=== PATIENT | female | born 1945 | race Caucasian/White ===

== ENCOUNTER 2024-07-21 18:53 | Inpatient (IN) | payer MEDICARE, BC, SELFPAY ==
--- NOTE | 2024-07-21 18:56 | EKG_ITS ---
[facility] Test Date: 2024-07-21 Pat Name: TAYLOR JAMESON Department: Room: - Gender: Female Chief Service Observer: : 1945 Requested By: Tony Bettencourt Order Number: [id number] Reading MD: Tony Bettencourt Measurements Intervals [place] Rate: 77 P: 74 IA: 200 QRS: 80 QRSD: 96 T: 70 QT: 385 QTc: 436 Interpretive Statements SINUS RHYTHM WITH SINUS ARRHYTHMIA POSSIBLE RIGHT VENTRICULAR CONDUCTION DELAY [RSR (QR) IN V1/V2] No previous ECG available for comparison /store/S0/[id number].pdf
--- NOTE | 2024-07-21 18:56 | XR_ITS ---
Examination: CT cervical spine without contrast 2-D sagittal reconstructions 2-D coronal reconstructions 3-D reconstructions. Exam date and time:July 21, 2024 at 1941 hrs. Indications: Patient fell today with into the neck, neck pain CTDI:vol (mGy) 7.84 DLP: (mGycm) 172 Technique: Multiple 2 mm axial sections of the cervical spine have been obtained. The coronal and sagittal reconstructions have been obtained. 3-D reconstructions have been obtained. Low dose protocols were performed. One or more of the following dose reduction techniques were used; automated exposure control, adjustment of the mA and/or KV according to patient size, use of iterative reconstruction technique. Findings: Axial sections demonstrate intact base of the skull. C1 exhibit satisfactory relationship to the odontoid. No acute cervical vertebral body fracture seen. Alignment posterior spinous processes satisfactory. Biapical scarring Impression: No acute cervical fracture.
--- NOTE | 2024-07-21 18:56 | XR_ITS ---
Examination: CT brain head without contrast. 2-D sagittal coronal reconstructions Date and time of exam:July 21, 2024 1941 hrs. Indications: Patient fell today with injury to the head, headache CTDI: vol (mGy):58.9 DLP: (mGycm):1166 Technique: Multiple CT axial sections of the brain have been obtained, 5 mm slice thickness. Contrast has not been administered. 2-D sagittal, coronal reconstructions have been obtained Low dose protocols were performed. One or more of the following dose reduction techniques were used; automated exposure control, adjustment of the mA and/or KV according to patient size, use of iterative reconstruction technique. Findings: No significant ventricular enlargement. Intra-axial or extra-axial hemorrhage density is not seen. No mass effect or midline shift Basal cisterns are not remarkable. Fourth ventricle is midline. Cranial vault intact. Impression: Negative for acute hemorrhage, mass effect or midline shift
--- NOTE | 2024-07-21 18:56 | XR_ITS ---
Examination:Right hip AP, lateral, AP pelvis 3 views Technique: Hip AP lateral, AP pelvis, 3 views Exam date and time:1024 1956 hrs. Indications: Patient fell today with injury to the hip, hip pain Findings: Acute comminuted angulated fracture, intertrochanteric, right hip, 2 cm offset of the main fracture fragments Left hip bones of the pelvis intact Impression: Acute comminuted intertrochanteric fracture right hip.
--- NOTE | 2024-07-21 18:56 | XR_ITS ---
Examination: AP chest single view Technique one AP portable supine chest single view Exam date and time: July 21, 20242001 hrs. Comparison July 18, 2016 Indications: Ground-level fall today with injury to the chest, chest pain. Findings: Normal heart size Mild hyperexpansion Moderate pulmonary vascular congestion No pneumothorax Prominent osteopenia Clavicles ribs appear intact Impression: No pneumothorax, pulmonary contusion or hemothorax
--- NOTE | 2024-07-21 18:57 | EDNOTE_ITS ---
ED General RME/HPI General Chief complaint: Fall Stated complaint: FALL Time Seen by Provider: 07/21/24 18:55 Arrival date/time: 07/21/24 18:53 CC: Right hip pain HPI patient fell approximately 30 minutes ago stepping backwards caught her heel on something and fell patient immediately experienced pain in the right hip denies LOC or LOC states she takes a baby aspirin a day. Only medication at home simvastatin other than [id number] vitamins. Patient is awake alert oriented nontoxic-appearing no focal deficits. Related Data Allergies Allergy/AdvReac Type Severity Reaction Status Date / Time No Known Allergies Allergy Verified 07/21/24 20:31 Review of Systems Review of Systems Narrative Review of Systems: GEN: No fever, no chills, no weight loss EYES: No discharge, no visual changes, no pain HEENT: No ear pain, no congestion, no sore throat PULM: No shortness of breath, no cough, no congestion CV: No chest pain, no dyspnea on exertion, no palpitations GI: No nausea, no vomiting, no diarrhea, no pain, no constipation : No frequency, no urgency, no dysuria MUSC/SKEL: + joint pain, no back pain SKIN: No rash PSYCH: No hallucinations, no depression HEME/LYMPH: No easy bleeding or bruising tendencies NEURO: No weakness, no headache ED Exam Narrative Physical exam: [General: In moderate discomfort but not in any acute distress Head normocephalic, no step-off hematoma induration ulceration depression HEENT: Eyes pupils are PERRLA EOMs are intact mouth pink dry Momi on exam uvula is midline swallow symmetrical all other subsystems of HEENT within acceptable limits Neck is supple nontender no JVD nontender to palpation. Including cervical spinous process Chest equal chest rise nontender to palpation Respiratory: Clear to auscultation no wheezes crackles or rubs CV: Rate rhythm is regular no murmurs rubs or clicks Abdomen is soft nontender no masses positive bowel sounds all 4 quadrants Back: No CVA tenderness no spinous process tenderness from cervical spine thoracic and lumbar spine Skin: Intact no petechiae rash induration ulceration or crepitus Extremities: Decreased range of motion right lower extremity secondary to extreme pain in the right hip cap refill in the foot less than 2 seconds neurosensory intact. moving all other against resistance cap refill less than 2 seconds neurosensory intact Neuro: Awake alert oriented x3 Glascow coma 15 no focal deficits] Course Course Course Narrative: 2114Dr. Coulter consulted he is currently at bedside. Family and Dr Coulter agree patient with be admitted to the hospitalist here Dr. Coulter consult. Patient's case discussed with Dr. Khan for Dr. Chand, and attending, who agrees to except the patient for admission. Quality Measures VTE prophylaxis Orders Category Date Time Status Admit to Inpatient Status Routine Admission 07/21/24 21:53 Active Patient Condition Routine Admission 07/21/24 21:53 Ordered COVID-19 Screening Questionnaire NOW Care 07/21/24 20:55 Active Consent [Obtain Written Consent For:] .NOW Care 07/21/24 21:35 Active EKG (ED ONLY) *Do not use* NOW Care 07/21/24 18:56 Completed Miscellaneous Nursing Order NOW Care 07/21/24 21:49 Active NPO after Midnight ONCE Care 07/21/24 21:35 Active Notify provider NEEDED Care 07/21/24 21:53 Active Saline [Insert IV] NOW Care 07/21/24 18:56 Active Consult to Cardiology Stat Cons 07/21/24 21:35 Ordered Consult to Orthopedic Stat Cons 07/21/24 21:26 Ordered Diet NPO after Midnight Diet 07/22/24 00:[address] cervical spine wo con Stat Exams 07/21/24 18:[address] head/brain wo con Stat Exams 07/21/24 18:[address] hip RT wo con Stat Exams 07/21/24 19:42 Completed EKG (ED Only) Stat Exams 07/21/24 18:56 Draft XR chest 1V Stat Exams 07/21/24 18:56 Completed XR hip RT w pelvis 2-3V Stat Exams 07/21/24 18:56 Completed B-Type Natriuretic Peptide Stat Lab 07/21/24 07:13 Completed CBC Stat Lab 07/21/24 07:13 Completed Comprehensive Metabolic Panel Stat Lab 07/21/24 07:13 Completed Drug Screen,Urine Stat Lab 07/21/24 21:19 Completed LDH (Lactate Dehydrogenase) Stat Lab 07/21/24 07:13 Completed Magnesium Stat Lab 07/21/24 07:13 Completed PLATELETS [Pheresis Platelets] Stat Lab 07/21/24 21:38 Ordered Partial Thromboplastin Time Stat Lab 07/21/24 07:13 Completed Prothrombin Time with INR Stat Lab 07/21/24 07:13 Completed Urinalysis Stat Lab 07/21/24 21:19 Received Morphine Inj Med 07/21/24 20:09 Discontinued 4 mg IVP X1 ONE Ondansetron Inj [Zofran Inj] Med 07/21/24 20:09 Discontinued 4 mg IV X1 ONE Sodium Chloride 0.9% 1000 ml [Ns] 1,000 ml Med 07/21/24 20:10 Active IV 85 mls/hr fentaNYL INJ [Sublimaze Inj] Med 07/21/24 18:56 Discontinued 50 mcg IVP X1 ONE Code Status Routine Oth 07/21/24 21:53 Ordered Vital Signs Vital signs: Vital Signs Temperature 97.9 F 07/21/24 18:59 Pulse Rate 76 07/21/24 18:59 Respiratory Rate 18 07/21/24 18:59 Blood Pressure 139/84 H 07/21/24 18:59 Pulse Oximetry (%) 100 07/21/24 18:59 Oxygen Delivery Method Room Air 07/21/24 18:59 [facility] Patient data External records reviewed:: [facility] previous records and EMS form Clinical information provided by:: patient and EMS Social determinants that could affect healthcare access:: none Patient has the following chronic illnesses:: Hyperlipidemia How is presenting disease/condition affected by chronic disease/condition?: u neffected by Evaluation data The following diagnostics were reviewed and interpreted by me:: lab results, radiology exam(s) and EKG tracing(s) Lab and/or radiology exams considered but not ordered:: EKG performed at 1910 shows a ventricular rate of 77 RI interval 200 QRS of 9 6 QTc of 416 is sinus rhythm baseline wander. CT head and C-spine as interpreted by me read by radiology as negative for any acute finding requires emergent immediate intervention. CBC shows no acute leukocytosis anemia thrombocytopenia CMP shows there is elevated BUN no other electrolyte imbalances renal impairment transaminitis or T. bili elevation X-ray of the hip shows a comminuted intertrochanteric fracture. Chest x-ray as interpreted by me read by radiology as negative for any acute finding requires emergent or immediate intervention. CT of the pelvis showed the patient has had a comminuted intertrochanteric fracture. Interpretation Summary: CBC shows no acute leukocytosis anemia thrombocytopenia CMP shows no acute electrolyte imbalances renal impairment transaminitis or T. bili elevation CT of the pelvis shows a comminuted intratrochanteric fracture X-ray of the pelvis shows comminuted intertrochanteric fracture of the right femur Medications Medications considered but not ordered:: None Medication administrations:: Medication Administration History Sodium Chloride (Ns) 1,000 mls @ 85 mls/hr IV .[id number] JOEY Stop: 08/20/24 20:09 Last Admin: 07/21/24 20:43 Dose: 85 mls/hr Documented By: AM Discontinued Medications Fentanyl Citrate (Fentanyl Cit Inj 50 Mcg/Ml Amp 2ml) 50 mcg IVP X1 ONE Stop: 07/21/24 18:57 Last Admin: 07/21/24 19:16 Dose: 50 mcg Documented By: CB Morphine Sulfate (Morphine Sulf Inj 10 Mg/Ml Vial) 4 mg IVP X1 ONE Stop: 07/21/24 20:10 Last Admin: 07/21/24 20:42 Dose: 4 mg Documented By: AM Ondansetron HCl (Ondansetron Inj 2 Mg/Ml Inj 2 Ml) 4 mg IV X1 ONE; Protocol Stop: 07/21/24 20:10 Last Admin: 07/21/24 20:41 Dose: 4 mg Documented By: AM None Consultations Consultation(s) initiated? (list below): Yes Diagnosis Differential Diagnosis ED Complaint MDM: Intertrochanteric fracture femoral neck fracture acetabular fracture Most likely diagnosis given after review of the tests above:: Intertrochanteric fracture of the right femur Admission Indicated Admission indicated?: indicated Explain why admission is indicated or not indicated:: Further surgical management Admission Request Was there a request for admission?: No Disposition Plan Disposition Plan: Admit Medical Decision Making Differential Diagnosis Differential Diagnosis: Intertrochanteric fracture femoral neck fracture acetabular fracture Lab Data 07/21/24 07:13 07/21/24 07:13 Labs: Lab Results 07/21/24 07/21/24 Range/Units 07:13 21:19 WBC 5.0 (3.6-11.0) Thou/mm3 RBC 4.26 (4.00-5.20) Miln/mm3 Hgb 13.5 (12.0-16.0) g/dL Hct 39.2 (36.0-46.0) % MCV 92 (80-100) fL MCH 31.7 (25.0-35.0) pg MCHC 34.4 (31.0-37.0) g/dl RDW Std Deviation 44.0 (36.4-46.3) fL Plt Count 174 (140-440) Thou/mm3 Neut % (Auto) 52 (37-80) % Lymph % (Auto) 32 (10-50) % Woods % (Auto) 9 (0-12) % Eos % (Auto) 6 (0-10) % Baso % (Auto) 0 (0-2.5) % Neut # (Auto) 2.6 (1.8-7.7) Thou/mm3 Lymph # (Auto) 1.6 (1.0-4.8) Thou/mm3 Woods # (Auto) 0.5 (0.0-0.8) Thou/mm3 Eos # (Auto) 0.3 (0.0-0.5) Thou/mm3 Baso # (Auto) 0.0 (0.0-0.2) Thou/mm3 Immature Gran # (Auto) 0.02 H (0.00-0.00) Thou/mm3 Absolute Nucleated RBC 0.00 (0.00-0.00) Thou/mm3 Immature Gran % 0 (0-0) % Nucleated RBC % 0 (0) /100 WBC PT 11.4 (9.0-12.2) Seconds INR 1.0 (0.9-1.3) APTT 24.8 (22.0-36.0) Seconds Sodium 141 (136-145) mMol/L Potassium 4.0 (3.4-5.1) mMol/L Chloride 106 (98-107) mMol/L Carbon Dioxide 26.2 (20.0-31.0) mMol/L Anion Gap 9 (7-16) BUN 25 H (9-23) mg/dL Creatinine 1.0 (0.6-1.3) mg/dL Estim Creat Clear Calc 47.5 L (>60) mL/min eGFR 58 L (60 - ) See Note BUN/Creatinine Ratio 25 H (12-20) Ratio Glucose 176 H (74-106) mg/dL Calculated Osmolality 289 (275-295) Calcium 9.8 (8.3-10.6) mg/dL Corrected Calcium 9.8 (8.5-10.1) mg/dL Magnesium 1.9 (1.6-2.6) mg/dL Total Bilirubin 0.5 (0.3-1.2) mg/dL AST 33 (0-34) U/L ALT 29 (10-49) U/L Alkaline Phosphatase 75 (46-116) U/L Lactate Dehydrogenase 300 H (120-246) U/L B-Natriuretic Peptide 39 (0-100) pg/mL Total Protein 6.5 (5.7-8.2) gm/dL Albumin 4.4 (3.4-4.8) gm/dL Globulin 2.1 L (2.3-3.5) gm/dL Albumin/Globulin Ratio 2.1 (1.2-2.2) Urine Opiates Screen Positive A (Negative) Urine Fentanyl Screen Negative (Negative) Ur Barbiturates Screen Negative (Negative) U Amphetamin/Meth Scrn Negative (Negative) U Benzodiazepines Scrn Negative (Negative) U Cocaine Metab Screen Negative (Negative) U Marijuana (THC) Screen Negative (Negative) Discharge Plan Plan Patient Disposition: Other Care w/in Hosp ([facility]) Patient condition on transfer: Stable Prescriptions/Referrals Referrals: Adán Reed MD [Primary Care Provider] - In 1 week Problem List Clinical Impression: Closed fracture of right hip Patient/Caregiver Discharge Instructions Print Language: Korean Stand Alone Forms: Alessandra Award Info., Patient Portal Info Letter MICHAEL/CELESTINA Supervising Physician MICHAEL/CELESTINA Supervising Physician: Anjali Reed ENP
[2024-07-21 18:59] VITALS: BP 139/84; PULSE 76; RESP 18; TEMP 36.6; O2SAT 100
[2024-07-21 19:07] VITALS: PULSE 92; O2SAT 98
[2024-07-21] MEDS: fentaNYL CIT INJ 50 mCg/ML AMP 2ML IVP (19:16)
[2024-07-21 19:19] VITALS: BMI 21.7
[2024-07-21 19:21] VITALS: BP 144/93; PULSE 75; RESP 12; O2SAT 100
[2024-07-21 19:25] LABS: Basophils % (Auto) 0 % (0-2.5); Eosinophils # (Auto) 0.3 Thou/mm3 (0.0-0.5); Eosinophils % (Auto) 6 % (0-10); Hematocrit 39.2 % (36.0-46.0); Hemoglobin 13.5 g/dL (12.0-16.0); Immature Granulocytes % (Auto) 0 % (0-0); Immature Granulocytes Auto 0.02 Thou/mm3 (0.00-0.00); Lymphocytes # (Auto) 1.6 Thou/mm3 (1.0-4.8); Lymphocytes % (Auto) 32 % (10-50); Mean Corpuscular HGB Conc 34.4 g/dl (31.0-37.0); Mean Corpuscular Hemoglobin 31.7 pg (25.0-35.0); Mean Corpuscular Volume 92 fL (80-100); Monocytes # (Auto) 0.5 Thou/mm3 (0.0-0.8); Monocytes % (Auto) 9 % (0-12); Neutrophils # (Auto) 2.6 Thou/mm3 (1.8-7.7); Neutrophils % (Auto) 52 % (37-80); Nucleated Red Blood Cell % 0 /100 WBC (0); Platelet Count 174 Thou/mm3 (140-440); Red Blood Count 4.26 Miln/mm3 (4.00-5.20)
[2024-07-21 19:41] LABS: Partial Thromboplastin Time 24.8 Seconds (22.0-36.0); Prothrombin Time 11.4 Seconds (9.0-12.2)
--- NOTE | 2024-07-21 19:42 | XR_ITS ---
Examination: CT right hip, without contrast. CT pelvis without intravenous contrast 2-D sagittal reconstructions. 2-D coronal reconstructions. 3-D reconstructions. Date and time of exam:July 21, 2024 1955 hrs. Indications: Patient fell today with into the right hip, right hip pain CTDI: vol (mGy):9.51 DLP: (mGycm):282 Technique: Multiple 1.25 mm axial sections of the pelvis right hip have been obtained. 2-D sagittal and coronal reconstructions have been obtained. 3-D reconstructions have been obtained. Low dose protocols were performed. One or more of the following dose reduction techniques were used; automated exposure control, adjustment of the mA and/or KV according to patient size, use of iterative reconstruction technique. Findings: Severe osteopenia Iliac bones bones of the pelvis intact Acute angulated intertrochanteric fracture right hip No hip dislocation Left hip bones of the pelvis intact Urinary bladder intact Colonic diverticulosis Impression: Acute angulated comminuted intertrochanteric fracture right hip
[2024-07-21 19:44] LABS: B-Type Natriuretic Peptide 39 pg/mL (0-100)
[2024-07-21 19:45] LABS: Alanine Aminotransferase 29 U/L (10-49); Albumin, Serum 4.4 gm/dL (3.4-4.8); Albumin/Globulin Ratio 2.1 (1.2-2.2); Alkaline Phosphatase 75 U/L (46-116); Anion Gap 9 (7-16); Aspartate Amino Transferase 33 U/L (0-34); BUN/Creatinine Ratio 25 Ratio (12-20); Bilirubin,Total 0.5 mg/dL (0.3-1.2); Blood Urea Nitrogen 25 mg/dL (9-23); Calcium 9.8 mg/dL (8.3-10.6); Calcium (Corrected) 9.8 mg/dL (8.5-10.1); Carbon Dioxide 26.2 mMol/L (20.0-31.0); Chloride 106 mMol/L (98-107); Estimated Creatinine Clearance 47.5 mL/min (>60); Globulin 2.1 gm/dL (2.3-3.5); Glucose 176 mg/dL (74-106); LDH (Lactate Dehydrogenase) 300 U/L (120-246); Magnesium 1.9 mg/dL (1.6-2.6); Osmolality,Calculated 289 (275-295); Sodium 141 mMol/L (136-145); Total Protein 6.5 gm/dL (5.7-8.2); eGFR 58 See Note
[2024-07-21] MEDS: ONDANSETRON INJ 2 MG/ML INJ 2 ML 4 MG IV (20:41)
[2024-07-21] MEDS: MORPHINE SULF INJ 10 MG/ML VIAL 4 MG IVP (20:42)
[2024-07-21] MEDS: SODIUM CHLORIDE 0.9% 1000 ML 1,000 ML 85 ML IV (20:43)
--- NOTE | 2024-07-21 21:29 | ESCONSULT_ITS ---
HPI Consult details Reason for consultation narrative: Pain right hip History of present illness: Patient was in her kitchen and started back up caught her shoe fell backwards and injured her right hip no complaints of pain in her right knee right ankle or foot no complaints of pain in her shoulders elbows wrist hands or fingers Past Medical History Past Medical History CARDIAC: Negative Congestive Heart Failure RESPIRATORY: Negative Chronic Obstructive Pulmonary Disease (COPD) GENITOURINARY: Negative Renal Disease ENDOCRINE: Negative Diabetes Mellitus Type 1 or Diabetes Mellitus Type 2 Social History SMOKING STATUS: Never smoker Meds Home Medications and Allergies Allergies Allergy/AdvReac Type Severity Reaction Status Date / Time No Known Allergies Allergy Verified 07/21/24 20:31 Exam Vital Signs Temp Pulse Resp BP Pulse Ox O2 Del Method 97.9 F 75 12 144/93 H 100 Room Air 07/21/24 18:59 07/21/24 19:21 07/21/24 19:21 07/21/24 19:21 07/21/24 19:21 07/21/24 19:21 Blood pressure 144/93 Narrative Exam Patient is alert and oriented. She is able to lift her head off of the gurney and looks [id number] with no neck pain whatsoever. Has full range of motion of her shoulders elbows wrist hands and fingers and no pain with passive and active range of motion. No chest wall discomfort does have some mid axillary pain right chest wall not severe Abdomen soft nontender no masses no organomegaly Examination of lower extremities shows that the right lower extremity is shortened externally rotated No pain in her right knee right ankle or foot good active flexion-extension of her toes. No complaints of pain in left lower extremity Results - Ortho Labs 07/21/24 07:13 07/21/24 07:13 Labs: Short CBC 07/21/24 Range/Units 07:13 WBC 5.0 (3.6-11.0) Thou/mm3 Hgb 13.5 (12.0-16.0) g/dL Hct 39.2 (36.0-46.0) % Plt Count 174 (140-440) Thou/mm3 BMP 07/21/24 07:13 Sodium 141 Potassium 4.0 Chloride 106 Carbon Dioxide 26.2 BUN 25 H Creatinine 1.0 Glucose 176 H Calcium 9.8 Liver Function 07/21/24 Range/Units 07:13 Total Bilirubin 0.5 (0.3-1.2) mg/dL AST 33 (0-34) U/L ALT 29 (10-49) U/L Alkaline Phosphatase 75 (46-116) U/L Albumin 4.4 (3.4-4.8) gm/dL Hemoglobin 13.5, creatinine 1.0 Assessment & Plan Additional Assessment Additional comments: Right peritrochanteric subtrochanteric hip fracture Plan I contacted Dr. Caroline Guzman's going to see her in the morning were good at work on getting her done tomorrow afternoon I told him it is a justyn and a bolt. There is always a risk of surgery including infection perioperative postoperative deep vein thrombosis myocardial infarction and Hector embolus. Usually there is some abnormalities of gait after a severe right hip fracture or left hip fracture. I told her that the rehab will be intense and that most likely she will have a limp and it certainly could be on a permanent basis. 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 Adán Reed on a biannual basis. She did have a angiogram she said there was some blockage and no stent was required. She does have elevated cholesterol and takes atorvastatin and with this medication her cholesterol is 147
[2024-07-21 21:34] LABS: Collection Type, Urine Clean Catch; Squamous Epithelial Cell,Urine 0 /hpf (0-5)
[2024-07-21 21:52] LABS: Amphetamine/Methamp Scrn,U Negative (Negative); Barbiturate Screen,Urine Negative (Negative); Benzodiazepines Screen,Urine Negative (Negative); Benzoylecgonine Screen, Ur Negative (Negative); Fentanyl Screen,Urine Negative (Negative); Opiate Screen,Urine Positive (Negative); THC Screen,Urine Negative (Negative)
[2024-07-21 21:55] LABS: Bilirubin,Urine Negative (Negative); Blood,Urine Negative (Negative); Clarity,Urine Clear (Clear/Hazy); Color,Urine Drk-Yellow (Lt Yel-Yel); Glucose, Urine Negative (Negative); Ketones,Urine Negative (Negative); PH,Urine 6.5 (5.0-7.0); Protein,Urine Trace (Neg - Trace); Specific Gravity,Urine 1.026 (1.001-1.035)
[2024-07-21 21:56] LABS: Leukocyte Esterase,Urine Negative (Negative); Nitrite,Urine Negative (Negative); RBC,Urine 4 /hpf (0-3); WBC,Urine 3 /hpf (0-5)
--- NOTE | 2024-07-21 22:50 | PD.RESHP ---
Documentation for date of: 07/21/24 HPI History of Present Illness Chief complaint: Ground level fall, R hip pain History of present illness: Patient is a 79-year-old female with past medical history of hyperlipidemia who presented to the ED on 07/21/2024 with a ground level mechanical fall earlier today at home. Patient states that at approximately 6 pm she was stepping backwards when her heel caught over a corner of furniture in her home. Patient fell backwards, landed on her hip and felt immediate pain. Patient denied any prodrome of dizziness, lightheadedness, or presyncope. Denies hit to head or loss of consciousness. Patient ambulates independently without assistance and completes all ADLs. Lives at home with . She denies any chest pain, shortness of breath, nausea, vomiting, abdominal pain, change to bowel or urinary habits, fever, chills, or any other symptoms. Patient denies any significant cardiac history, states she had an angiogram before but no stents placed and is not currently seeing a java j2ee software engineer. She follows with her PCP Dr. Adán Reed. ED Course: -BP 139/84, HR 76, RR 18, Temp 97.9, O2 100% on room air -Labs showed CBC normal, CMP showed BUN 25, creatinine 1.0 (no prior baseline), creatinine clearance 47.5, GFR 58, glucose 176, LDH 300 -Cervical spine CT and head CT negative -CXR normal -EKG showed sinus rhythm at a rate of 77 -R hip and pelvis X-ray showed acute comminuted intertrochanteric fracture right hip -R hip CT showed acute angulated comminuted intertrochanteric fracture right hip -In the ED, patient was given fentanyl 50 mcg IV x1, Zofran 4 mg IV x1, morphine 4 mg IV x1, IV NS at 85 ml/hr -Patient was admitted for acute right hip fracture and Ortho was consulted by the ED for surgical management Review of Systems Review of systems otherwise negative except what is mentioned above. Past Medical History Past Medical History Comments PMH COMMENT: Past Medical History: Hyperlipidemia Surgical History: Tonsillectomy, appendectomy, total hysterectomy Social History: Denies history of smoking, occasional alcohol use about 1 glass of wine per month, denies recreational drug use Current Medications: Atorvastatin 40 mg qday (Source: Patient) Allergies: No known drug allergies Exam Vital Signs Temp Pulse Resp BP Pulse Ox O2 Del Method 97.9 F 75 12 144/93 H 100 Room Air 07/21/24 18:59 07/21/24 19:21 07/21/24 19:21 07/21/24 19:21 07/21/24 19:21 07/21/24 19:21 Narrative Exam Physical Exam General: Awake and in no acute distress. Elderly female conversational and non-toxic appearing. HEENT: Normocephalic, atraumatic, mucous membranes moist. Heart: Regular rate and rhythm, no murmurs. Lungs: Clear to auscultation with no wheezing or crackles. Abdomen: Soft, nondistended, nontender, positive bowel sounds. ?No guarding or rebound tenderness. Neurologic: Alert and oriented x3, no gross neurological deficit, and patient able to move all 4 extremities. Extremities: Right hip is edematous, no notable abrasions, hematoma, ecchymoses. Flexed and externally rotated. Able to move bilateral toes. Peripheral pulses intact. Skin: No rash or ecchymoses. Results: Labs 07/22/24 04:57 07/21/24 07:13 Labs: Short CBC 07/21/24 Range/Units 07:13 WBC 5.0 (3.6-11.0) Thou/mm3 Hgb 13.5 (12.0-16.0) g/dL Hct 39.2 (36.0-46.0) % Plt Count 174 (140-440) Thou/mm3 BMP 07/21/24 07:13 Sodium 141 Potassium 4.0 Chloride 106 Carbon Dioxide 26.2 BUN 25 H Creatinine 1.0 Glucose 176 H Calcium 9.8 Liver Function 07/21/24 Range/Units 07:13 Total Bilirubin 0.5 (0.3-1.2) mg/dL AST 33 (0-34) U/L ALT 29 (10-49) U/L Alkaline Phosphatase 75 (46-116) U/L Albumin 4.4 (3.4-4.8) gm/dL Urine 07/21/24 Range/Units 21:19 Urine Color Drk-Yellow A (Lt Yel-Yel) Urine Clarity Clear (Clear/Hazy) Urine pH 6.5 (5.0-7.0) Ur Specific [place] 1.026 (1.001-1.035) Urine Protein Trace (Neg - Trace) Urine Glucose (UA) Negative (Negative) Quality Measures Quality Measures VTE prophylaxis Advance care planning discussed with:: patient and spouse Medications Home Medications and Allergies Home Medications ?Medication ?Instructions ?Recorded ?Confirmed ?Type atorvastatin 40 mg tablet 40 mg PO DAILY 07/22/24 07/22/24 History Allergies Allergy/AdvReac Type Severity Reaction Status Date / Time No Known Allergies Allergy Verified 07/21/24 20:31 Visit Medications Sodium Chloride (Ns) 1,000 mls @ 85 mls/hr IV .[id number] JOEY Stop: 08/20/24 20:09 Last Admin: 07/21/24 20:43 Dose: 85 mls/hr Discontinued Medications Fentanyl Citrate (Fentanyl Cit Inj 50 Mcg/Ml Amp 2ml) 50 mcg IVP X1 ONE Stop: 07/21/24 18:57 Last Admin: 07/21/24 19:16 Dose: 50 mcg Morphine Sulfate (Morphine Sulf Inj 10 Mg/Ml Vial) 4 mg IVP X1 ONE Stop: 07/21/24 20:10 Last Admin: 07/21/24 20:42 Dose: 4 mg Ondansetron HCl (Ondansetron Inj 2 Mg/Ml Inj 2 Ml) 4 mg IV X1 ONE; Protocol Stop: 07/21/24 20:10 Last Admin: 07/21/24 20:41 Dose: 4 mg Assessment & Plan Plan 79-year-old female with past medical history of hyperlipidemia who presented to the ED on 07/21/2024 with a ground level mechanical fall, found to have acute comminuted intertrochanteric right hip fracture, admitted for orthopedic surgery. #Ground level mechanical fall #Acute comminuted intertrochanteric closed right hip fracture Patient had ground level mechanical fall at home, R hip and pelvis X-ray and CT showed acute comminuted intertrochanteric fracture of the right hip. Head and neck CT were negative. Patient denies any prodrome to fall, states she is normally independent. Patient without significant risk factors for surgery, METS >4. -Orthopedic surgery was consulted and saw patient in ED -Cardiology was consulted and cardiac clearance requested by ortho -NPO for surgery tomorrow -Continue IV fluids NS at 85 ml/hr -TTE ordered -A1c, lipids ordered for risk stratification -Acetaminophen as needed for fever or pain -[place] 5/325 q6h as needed for moderate to severe pain -Morphine 2 mg q4h as needed for severe pain -Zofran as needed for nausea #History of hyperlipidemia Patient history, takes atorvastatin at home. -Continue home atorvastatin 40 mg HS -Ordered AM lipid panel DVT prophylaxis: SCDs pending surgery GI prophylaxis: Not indicated Diet: NPO Kurtz: Present [07/21/2023- ] Lines: Peripheral IV Antibiotics: None CODE STATUS: FULL Reason for hospitalization: R hip fracture secondary to ground-level fall, pending surgery Patient plan of care was discussed with the attending physician, Dr. Chand. Florina Arias, PGY-2 Attending Provider Attestation/Addendum Face to face evaluation was performed by me. I have personally seen and examined the patient. I discussed the assessment and plan with the entire medicine team. I reviewed available medical records, imaging studies, laboratory results. I agree with the above subjective data, objective findings, assessment and plan except as corrected by me or noted below -Ground level mechanical fall, nonsyncopal -Right hip intertrochanteric comminuted fracture, closed -Right hip pain due to above hyperlipidemia - -Pain control, orthopedic surgery consulted, keep n.p.o. after midnight possible procedure tomorrow. She does not have cardiac history, does not look like to be high risk for possible surgery. EKG seems like done.
[2024-07-21 23:03] VITALS: BMI 23.0
[2024-07-21] MEDS: MORPHINE SULF INJ 10 MG/ML VIAL 2 MG IVP (23:58)
[2024-07-22] VITALS (16 sets, daily range): BP systolic 85–142; BP diastolic 40–78; PULSE 69–99; RESP 12–97; TEMP 36.1–37.4; O2SAT 93–100
[2024-07-22] MEDS: MORPHINE SULF INJ 10 MG/ML VIAL 2 MG IVP ×2 (03:54→08:38)
[2024-07-22 05:55] LABS: Basophils % (Auto) 0 % (0-2.5); Eosinophils # (Auto) 0.1 Thou/mm3 (0.0-0.5); Eosinophils % (Auto) 1 % (0-10); Hematocrit 29.7 % (36.0-46.0); Hemoglobin 10.2 g/dL (12.0-16.0); Immature Granulocytes % (Auto) 0 % (0-0); Immature Granulocytes Auto 0.01 Thou/mm3 (0.00-0.00); Lymphocytes # (Auto) 0.6 Thou/mm3 (1.0-4.8); Lymphocytes % (Auto) 10 % (10-50); Mean Corpuscular HGB Conc 34.3 g/dl (31.0-37.0); Mean Corpuscular Hemoglobin 32.4 pg (25.0-35.0); Mean Corpuscular Volume 94 fL (80-100); Monocytes # (Auto) 0.4 Thou/mm3 (0.0-0.8); Monocytes % (Auto) 7 % (0-12); Neutrophils # (Auto) 4.7 Thou/mm3 (1.8-7.7); Neutrophils % (Auto) 81 % (37-80); Nucleated Red Blood Cell % 0 /100 WBC (0); Platelet Count 177 Thou/mm3 (140-440); RDW Standard Deviation 45.2 fL (36.4-46.3); Red Blood Count 3.15 Miln/mm3 (4.00-5.20); White Blood Count 5.8 Thou/mm3 (3.6-11.0)
[2024-07-22 06:15] LABS: INR 1.1 (0.9-1.3); Partial Thromboplastin Time 24.8 Seconds (22.0-36.0); Prothrombin Time 11.9 Seconds (9.0-12.2)
[2024-07-22 06:32] LABS: Anion Gap 5 (7-16); BUN/Creatinine Ratio 31 Ratio (12-20); Blood Urea Nitrogen 25 mg/dL (9-23); Calcium 8.6 mg/dL (8.3-10.6); Carbon Dioxide 27.6 mMol/L (20.0-31.0); Chloride 110 mMol/L (98-107); Creatinine (Component) 0.8 mg/dL (0.6-1.3); Estimated Creatinine Clearance 59.4 mL/min (>60); Glucose 177 mg/dL (74-106); Magnesium 1.8 mg/dL (1.6-2.6); Osmolality,Calculated 293 (275-295); Phosphorous 3.5 mg/dL (2.4-5.1); Sodium 143 mMol/L (136-145); eGFR > 60 See Note
[2024-07-22 06:44] LABS: Cardiac Risk Estimate 2.4 RATIO (3.7-5.6); Cholesterol 126 mg/dL (132-200); HDL Cholesterol 52 mg/dL (40-60); LDL Cholesterol,Calculated 67 mg/dL (0-130); Triglycerides 36 mg/dL (30-150)
[2024-07-22 07:16] LABS: Glucose Estimated Average 108 mg/dL (80-131); Hemoglobin A1C 5.4 % Hgb (4.8-6.0)
--- NOTE | 2024-07-22 08:59 | ECHO_ITS ---
Transthoracic Echo Report Ht (in): 68 Wt (lb): 151 Exam Location: [facility] Status: Inpatient Product Development Director: Aicha Heath Indications: Procedure Performed: BP: 122 / 62 HR: 82 Rhythm: Sinus Technical Quality: Fair MEASUREMENTS (Male / Female) Normal Values 2D ECHO LV Diastolic Diameter PLAX 4.0 cm 4.2 - 5.9 / 3.9 - 5.3 cm LV Systolic Diameter PLAX 2.8 cm IVS Diastolic Thickness 0.8 cm 0.6 - 1.0 / 0.6 - 0.9 cm LVPW Diastolic Thickness 0.9 cm 0.6 - 1.0 / 0.6 - 0.9 cm LV Relative Wall Thickness 0.4 LVOT Diameter 1.8 cm LA Volume Index 23.6 cm?/m? 16 - 28 cm?/m? Ascending Aorta Diameter 2.7 cm M-MODE Aortic Root Diameter MM 2.6 cm LA Systolic Diameter MM 3.3 cm LA Ao Ratio MM 1.3 AV Cusp Separation MM 1.9 cm DOPPLER AV Peak Velocity 164.0 cm/s AV Peak Gradient 10.8 mmHg AV Mean Gradient 5.0 mmHg AV Velocity Time Integral 38.3 cm LVOT Peak Velocity 155.0 cm/s LVOT Peak Gradient 9.6 mmHg LVOT Velocity Time Integral 31.4 cm LVOT Cardiac Index 3608.4 cm?/min?m? AV Area Cont Eq vti 2.1 cm? AV Area Cont Eq pk 2.4 cm? MV Peak Velocity 101.0 cm/s MV Peak Gradient 4.1 mmHg MV Mean Velocity 63.5 cm/s MV Mean Gradient 2.0 mmHg MV Area PHT 4.2 cm? Mitral E Point Velocity 79.2 cm/s Mitral A Point Velocity 81.9 cm/s Mitral E to A Ratio 1.0 LV E' Lateral Velocity 13.8 cm/s Mitral E to LV E' Lateral Ratio 5.7 LV E' Septal Velocity 9.0 cm/s Mitral E to LV E' Septal Ratio 8.8 TR Peak Velocity 307.0 cm/s TR Peak Gradient 37.7 mmHg FINDINGS Left Ventricle Normal left ventricular size, wall thickness, systolic function with no obvious regional wall motion abnormalities. The ejection fraction is visually estimated at 60-65%. Right Ventricle The right ventricle is normal in size and systolic function. The estimated right ventricular systoli c pressure, 46mmHg. RAP 5. Left Atrium The left atrium is normal by two-dimensional, color flow and Doppler imaging with no structural abnormalities, no thrombus formation present. Right Atrium The right atrium is normal by two-dimensional imaging, color flow and Doppler imaging with no struct ural abnormalities, no thrombus formation present. Atrial Septum The interatrial septum appears normal with no evidence of a shunt. Aorta The aorta is normal by two-dimensional, color flow and Doppler interrogation. Mitral Valve The mitral valve is normal by two-dimensional, color flow and Doppler interrogation. There is trace mitral valve regurgitation. Aortic Valve The aortic valve is trileaflet and normal by two-dimensional, color flow and Doppler interrogation. There is no significant aortic valve regurgitation. Tricuspid Valve The tricuspid valve is normal by two-dimensional, color flow and Doppler interrogation. There is mil d tricuspid valve regurgitation. Pulmonic Valve There is no significant pulmonic valve regurgitation. Vessels The pulmonary artery appears normal. The inferior vena cava pulmonary and hepatic veins appear margret l. Pericardium The pericardium is normal by two-dimensional imaging. There is no significant pericardial effusion. CONCLUSIONS Normal LV size and function. Estimated EF 60-65% Normal RV size and function. Estimated RVSP 46mmHg. Trace MR. Mild TR. LOw c ardiac risk for surgery Nikki Ramires (Electronically Signed) Final Date: 22 July 2024 13:32
[2024-07-22] MEDS: SODIUM CHLORIDE 0.9% 1000 ML 1,000 ML 85 ML IV (09:05)
--- NOTE | 2024-07-22 09:44 | ESCONSULT_ITS ---
<Statement entered by Del Guzman MD - 07/24/24 13:06> The patient is evaluated by me and has normal LVEF 65% by ECHO low cardiac risk for surgery patient is evaluated by me personally appears to be doing clinically stable no shortness of or chest pain given cardiac clearance for surgery I agree with the treatment plan recommendation as formulated by Dr De La Torre PGY 2 HPI Data of Consult Requesting Physician: Wilfredo Chand MD Admitting Provider: Wilfredo Chand MD Attending Provider: Wilfredo Chand MD Primary Care Provider: Adán Reed MD Consult Narrative Reason for consult: cardiac clearance History of present illness: Ms. Falk is a 79-year-old female with past medical history significant for hyperlipidemia who presented to the ED after suffering a ground-level fall. Around 6 PM last night, patient was about her normal daily activities and when suddenly her foot was caught on the carpet at the edge of the dining table and she fell on her right hip against a low, small piece of furniture. Patient denied losing any consciousness, feeling dizzy, having a headache, or chest pain. Patient initially thought she dislocated her right hip however her brought her to the ED where she was evaluated. Both x-ray and right hip CT showed acute comminuted intertrochanteric fracture of the right hip. Head CT was negative for any hemorrhage or mass effect. CT cervical spine showed no fracture. Chest x-ray showed no pneumothorax or pulmonary contusion. In the ED, patient was given fentanyl and morphine pushes which helped control the pain. On examination today, patient states that she has no chest pain, shortness of breath, dizziness, lightheadedness, or cough. Patient continues to have right hip pain especially on movement. Patient's pain is currently well- controlled with pain regimen as per primary team. Of note, due to patient's strong cardiac history, patient had a stress test which showed some blockage, which prompted her previous cocktail waitress Dr. Waldrop in to get an angiogram which did note some blockage but not enough to place a stent, in 2016. 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 Adán Reed kept patient on home atorvastatin 40 mg. ROS: Negative except as mentioned above past medical history: As mentioned above Past surgical history: Tonsillectomy, appendectomy, total hysterectomy Meds: Atorvastatin 40 mg at bedtime, aspirin 81 mg daily, fish oil, vitamins Social history: Patient denies any smoking or recreational drug use. However, patient does drink 1 glass of wine occasionally. Patient was with her . Family history: Patient's father of a heart attack at age 47. Cardiology was consulted for pre-op cardiac clearance prior to orthopedic surgery later today. cc:: cc: Wilfredo Chand MD Review of Systems Review of Systems Systems Reviewed: All systems reviewed, normal except as documented Exam Vital Signs Temp Pulse Resp BP Pulse Ox O2 Del Method 97.1 F 78 18 116/57 L 97 Room Air 07/22/24 04:00 07/22/24 04:00 07/22/24 04:00 07/22/24 04:00 07/22/24 04:00 07/22/24 04:00 Narrative Exam General Appearance: Pt is awake and alert in NAD laying flat in bed. Elderly female, able to carry a conversation, well-nourished, and well-developed. HEENT: NC/AT, no scleral icterus, no conjunctival pallor, MMM Lungs: CTAB, no wheezes or crackles appreciated CVS: RRR, S1/S2 heard, no murmurs or rubs appreciated ABD: Soft, non-tender, non-distended, BS + in all 4 quadrants EXT: Right hip appears to be slightly edematous compared to left, otherwise tender to palpation, no hematoma or ecchymosis noted. Warm to touch otherwise. Distal pulses 2+ bilaterally. SKIN: Skin exam normal without any rashes. Neuro: A&O x 3. No gross neurological deficits. Motor and sensory grossly intact in B/L UL and LL except for right lower extremity due to pain, but able to move her toes bilaterally. Right lower extremity is currently flexed and externally rotated. Psych: Appropriate mood and affect Results Labs 07/22/24 09:04 07/22/24 04:57 Labs: Short CBC 07/21/24 07/22/24 Range/Units 07:13 04:57 WBC 5.0 5.8 (3.6-11.0) Thou/mm3 Hgb 13.5 10.2 L D (12.0-16.0) g/dL Hct 39.2 29.7 L (36.0-46.0) % Plt Count 174 177 (140-440) Thou/mm3 BMP 07/21/24 07/22/24 07:13 04:57 Sodium 141 143 Potassium 4.0 4.0 Chloride 106 110 H Carbon Dioxide 26.2 27.6 BUN 25 H 25 H Creatinine 1.0 0.8 Glucose 176 H 177 H Calcium 9.8 8.6 Liver Function 07/21/24 Range/Units 07:13 Total Bilirubin 0.5 (0.3-1.2) mg/dL AST 33 (0-34) U/L ALT 29 (10-49) U/L Alkaline Phosphatase 75 (46-116) U/L Albumin 4.4 (3.4-4.8) gm/dL Urine 07/21/24 Range/Units 21:19 Urine Color Drk-Yellow A (Lt Yel-Yel) Urine Clarity Clear (Clear/Hazy) Urine pH 6.5 (5.0-7.0) Ur Specific [place] 1.026 (1.001-1.035) Urine Protein Trace (Neg - Trace) Urine Glucose (UA) Negative (Negative) Quality Measures Quality Measures VTE prophylaxis Advance care planning discussed with:: patient Medications Home Medications and Allergies Home Medications ?Medication ?Instructions ?Recorded ?Confirmed ?Type atorvastatin 40 mg tablet 40 mg PO DAILY 07/22/24 07/22/24 History Allergies Allergy/AdvReac Type Severity Reaction Status Date / Time No Known Allergies Allergy Verified 07/21/24 20:31 Visit Medications Acetaminophen (Acetaminophen 325 Mg Tablet) 650 mg PO Q6H PRN PRN Reason: Fever >100.4 or Pain 1-10 Stop: 08/20/24 22:59 Hydrocodone Bitart/Acetaminophen (Hydrocodone/Apap 5/325 Tablet) 1 tab PO Q6H PRN PRN Reason: PAIN SCALE 4-6 (Moderate Stop: 07/26/24 22:59 Atorvastatin Calcium (Atorvastatin Calcium 20 Mg Tablet) 40 mg PO HS JOEY Stop: 08/21/24 20:59 Sodium Chloride (Ns) 1,000 mls @ 85 mls/hr IV .[id number] JOEY Stop: 08/20/24 20:09 Last Admin: 07/22/24 09:05 Dose: 85 mls/hr Magnesium Hydroxide (Milk Of Magnesia Susp 30 Ml Udc) 30 ml PO QDAY PRN; Protocol PRN Reason: CONSTIPATION Stop: 08/20/24 22:59 Morphine Sulfate (Morphine Sulf Inj 10 Mg/Ml Vial) 2 mg IVP Q4H PRN PRN Reason: PAIN SCALE 7-10 (Severe Stop: 07/26/24 22:59 Last Admin: 07/22/24 08:38 Dose: 2 mg Ondansetron HCl (Ondansetron Inj 2 Mg/Ml Inj 2 Ml) 4 mg IV Q6H PRN; Protocol PRN Reason: NAUSEA OR VOMITING Stop: 08/20/24 22:59 Sennosides (Senna Tablet) 1 tab PO BID PRN; Protocol PRN Reason: CONSTIPATION Stop: 08/20/24 22:59 Discontinued Medications Fentanyl Citrate (Fentanyl Cit Inj 50 Mcg/Ml Amp 2ml) 50 mcg IVP X1 ONE Stop: 07/21/24 18:57 Last Admin: 07/21/24 19:16 Dose: 50 mcg Morphine Sulfate (Morphine Sulf Inj 10 Mg/Ml Vial) 4 mg IVP X1 ONE Stop: 07/21/24 20:10 Last Admin: 07/21/24 20:42 Dose: 4 mg Morphine Sulfate (Morphine Sulf Inj 10 Mg/Ml Vial) 2 mg IVP Q6H PRN PRN Reason: PAIN SCALE 7-10 (Severe Stop: 07/26/24 22:59 Ondansetron HCl (Ondansetron Inj 2 Mg/Ml Inj 2 Ml) 4 mg IV X1 ONE; Protocol Stop: 07/21/24 20:10 Last Admin: 07/21/24 20:41 Dose: 4 mg Assessment & Plan Plan Ms. Falk is a 79-year-old female with past medical history significant for hyperlipidemia who presented to the ED after suffering a ground-level fall. Cardiology was consulted for pre-op cardiac clearance prior to orthopedic surgery later today. #Pre-op cardiovascular examination, intermediate risk surgery #Ground-level fall #Right intertrochanteric hip fracture Patient has a clear acute right intertrochanteric hip fracture and requires surgery. Pt's orthopedic surgery falls under the intermediate risk category, and suggests a 1-5% risk of adverse cardiac events. Patient's Revised Cardiac Risk Index (RCRI) is 0. All components have been reviewed. Pt hasn't had any cardiac risk factors except for hyperlipidemia and family cardiac history. Patient has had an angiogram with blockage noted in the past but no stent placed, as per previous cocktail waitress, Dr. Waldrop. Patient has never had any ACS symptoms or recent [place] or Heart Failure. Echo revealed normal LV size and function with an EF 60-65%. Normal RV size and function. Based on patient's clinical, family, and physical findingds, patient is at low cardiac risk for surgery. -Continue to control patient's pain with Morphine and [place] -DVT prophylaxis currently held -Continue with DVT prophylaxis with SCDs, and f/u with anticoagulation per Ortho recs -N.p.o. for now Patient's plan and care discussed with my attending, Dr. Thomas De La Torre MD PGY-2
[2024-07-22 09:51] LABS: Hematocrit 30.3 % (36.0-46.0); Hemoglobin 10.2 g/dL (12.0-16.0)
--- NOTE | 2024-07-22 12:26 | PC.SS ---
Kat Murray is a 79-year-old female admitted to Med-Surg for R Hip FX. SS conducted bedside contact with the patient to complete initial assessment and to discuss discharge planning. Patient confirmed demographic information. Patient identifies her López Murray [phone] as her surrogate decision maker. Patient resides at home with her . Pt states she is able to complete all ADL?s independently, no need for any source of DME. Pts PCP is Dr. Adán Reed and her last visit was 06/13/24. DC options discussed, pt refused SNF but is open if PT recommends HH (no preference). Pts will provide transportation upon DC. No further intervention required at this time, licensed clinical social worker would be available to address any further concerns. DC Plan: Home Contact: López Murray [phone] PCP: Adán Reed (last visit 06/13/24) Address: Confirmed HH: No preference
--- NOTE | 2024-07-22 12:33 | PC.SS ---
Rounding: Pending cardio clearance for SX with Dr. Coulter
--- NOTE | 2024-07-22 12:45 | XR_ITS ---
Examination: Right hip 6 views Fluoroscopy Exam date and time: July 22, 2024 1546 hours INDICATIONS: Operative reduction internal fixation right hip fracture today FINDINGS: 8 spot fluoroscopic AP lateral hip films Fluoroscopy 153 seconds radiation dose 16.10 milligray Operative reduction internal fixation right hip fracture with anatomic alignment IMPRESSION: Operative reduction internal fixation right hip fracture with anatomic alignment
--- NOTE | 2024-07-22 14:54 | ESPR_ITS ---
<Statement entered by Brian Serrano MD - 07/22/24 16:34> Patient was seen and examined at the bedside. Patient is admitted overnight after having ground-level fall complicated with right hip fracture. Orthopedics, Dr. Coulter was consulted. He recommended to have cardiac clearance. Wood Scrap Handler, Dr. Guzman was consulted. And he recommended that patient have low cardiac risk as ejection fraction on echocardiogram showed EF of 60% and patient does have a history of CAD no stents were placed in 2016 and had a history of lacunar strokes was placed on daily aspirin for prevention. She denied any chest pain or shortness of breath. Patient had a drop of hemoglobin from 13--> 10.2. Repeat H&H showed hemoglobin 10.2 most likely dilutional as patient received 2 L bolus fluids in the ED. Will likely follow- up with the H&H at 4 PM. Type and screen was ordered. Patient will be going for surgery today. Pain management orders as needed. All labs and orders were reviewed. I saw and examined the patient, and I agree with current management stated by Dr Jonny MD,PGY1. Plan of care was discussed with the attending physician and resident physician. Disclaimer: Despite multiple revisions, due to the dictation software being used, the document bellow may not be free of grammatical errors including phonetic/typographic errors. However, this does not deter from our commitment to providing health care in the patient's best interest in mind. Dr. Zach MD, PGY 2 Documentation for date of: 07/22/24 Subjective Subjective Interval history: No overnight events. Patient taken to surgery for repair of right hip fracture. Acute drop in hemoglobin, will monitor closely. Exam Vital Signs Temp Pulse Resp BP Pulse Ox O2 Del Method 99.2 F 80 17 120/54 L 93 L Room Air 07/22/24 12:05 07/22/24 12:07/22/24 12:07/22/24 12:07/22/24 12:07/22/24 12:00 Narrative Exam Physical Exam General: Awake and in no acute distress. Elderly female conversational and non- toxic appearing. HEENT: Normocephalic, atraumatic, mucous membranes moist. Heart: Regular rate and rhythm, no murmurs. Lungs: Clear to auscultation with no wheezing or crackles. Abdomen: Soft, nondistended, nontender, positive bowel sounds. ?No guarding or rebound tenderness. Neurologic: Alert and oriented x3, no gross neurological deficit, and patient able to move all 4 extremities. Extremities: Right hip is edematous, no notable abrasions, hematoma, ecchymoses. Flexed and externally rotated. Able to move bilateral toes. Peripheral pulses intact. Skin: No rash or ecchymoses. Objective Labs 07/22/24 09:04 07/22/24 04:57 Labs: Laboratory Results - last 24 hr 07/21/24 07/21/24 07/21/24 07:13 21:19 22:17 WBC 5.0 RBC 4.26 Hgb 13.5 Hct 39.2 MCV 92 MCH 31.7 MCHC 34.4 RDW Std Deviation 44.0 Plt Count 174 Neut % (Auto) 52 Lymph % (Auto) 32 [facility] % (Auto) 9 Eos % (Auto) 6 Baso % (Auto) 0 Neut # (Auto) 2.6 Lymph # (Auto) 1.6 [facility] # (Auto) 0.5 Eos # (Auto) 0.3 Baso # (Auto) 0.0 Immature Gran # (Auto) 0.02 H Absolute Nucleated RBC 0.00 Immature Gran % 0 Nucleated RBC % 0 PT 11.4 INR 1.0 APTT 24.8 Sodium 141 Potassium 4.0 Chloride 106 Carbon Dioxide 26.2 Anion Gap 9 BUN 25 H Creatinine 1.0 Estim Creat Clear Calc 47.5 L eGFR 58 L BUN/Creatinine Ratio 25 H Glucose [address] Glu mg/dL Hemoglobin A1c Calculated Osmolality 289 Calcium 9.8 Corrected Calcium 9.8 Phosphorus Magnesium 1.9 Total Bilirubin 0.5 AST 33 ALT 29 Alkaline Phosphatase 75 Lactate Dehydrogenase 300 H B-Natriuretic Peptide 39 Total Protein 6.5 Albumin 4.4 Globulin 2.1 L Albumin/Globulin Ratio 2.1 Triglycerides Cholesterol LDL Cholesterol, Calc HDL Cholesterol Cholesterol/HDL Ratio Ur Collection Type Clean Catch Urine Color Drk-Yellow A Urine Clarity Clear Urine pH 6.5 Ur Specific [place] 1.026 Urine Protein Trace Urine Glucose (UA) Negative Urine Ketones Negative Urine Blood Negative Urine Nitrite Negative Urine Bilirubin Negative Urine Urobilinogen (Auto) 2.0 Ur Leukocyte Esterase Negative Urine RBC 4 H Urine WBC 3 Ur Squamous Epith Cells 0 Urine Bacteria None Urine Opiates Screen Positive A Urine Fentanyl Screen Negative Ur Barbiturates Screen Negative U Amphetamin/Meth Scrn Negative U Benzodiazepines Scrn Negative U Cocaine Metab Screen Negative U Marijuana (THC) Screen Negative Blood Type A Positive Antibody Screen NEGATIVE Blood Bank Wristband ID Yes Blood Bank Comment PLATP Ready 07/22/24 07/22/24 04:57 09:04 WBC 5.8 RBC 3.15 L Hgb 10.2 L D 10.2 L Hct 29.7 L 30.3 L MCV 94 MCH 32.4 MCHC 34.3 RDW Std Deviation 45.2 Plt Count 177 Neut % (Auto) 81 H Lymph % (Auto) 10 [facility] % (Auto) 7 Eos % (Auto) 1 Baso % (Auto) 0 Neut # (Auto) 4.7 Lymph # (Auto) 0.[address] [place] # (Auto) 0.4 Eos # (Auto) 0.1 Baso # (Auto) 0.0 Immature Gran # (Auto) 0.01 H Absolute Nucleated RBC 0.00 Immature Gran % 0 Nucleated RBC % 0 PT 11.9 INR 1.1 APTT 24.8 Sodium 143 Potassium 4.0 Chloride 110 H Carbon Dioxide 27.6 Anion Gap 5 L BUN 25 H Creatinine 0.8 Estim Creat Clear Calc 59.4 L eGFR > 60 BUN/Creatinine Ratio 31 H Glucose [address] Glu mg/dL 108 Hemoglobin A1c 5.4 Calculated Osmolality 293 Calcium 8.6 Corrected Calcium Phosphorus 3.5 Magnesium 1.8 Total Bilirubin AST ALT Alkaline Phosphatase Lactate Dehydrogenase B-Natriuretic Peptide Total Protein Albumin Globulin Albumin/Globulin Ratio Triglycerides 36 Cholesterol 126 L LDL Cholesterol, Calc 67 HDL Cholesterol 52 Cholesterol/HDL Ratio 2.4 L Ur Collection Type Urine Color Urine Clarity Urine pH Ur Specific [place] Urine Protein Urine Glucose (UA) Urine Ketones Urine Blood Urine Nitrite Urine Bilirubin Urine Urobilinogen (Auto) Ur Leukocyte Esterase Urine RBC Urine WBC Ur Squamous Epith Cells Urine Bacteria Urine Opiates Screen Urine Fentanyl Screen Ur Barbiturates Screen U Amphetamin/Meth Scrn U Benzodiazepines Scrn U Cocaine Metab Screen U Marijuana (THC) Screen Blood Type Antibody Screen Blood Bank Wristband ID Blood Bank Comment Quality Measures Quality Measures VTE prophylaxis Advance care planning discussed with:: patient Assessment & Plan Assessment Current Active Medications: Generic Name Dose Route Start Last Admin Trade Name Freq PRN Reason Stop Dose Admin Acetaminophen 650 mg 07/22/24 11:21 Acetaminophen 325 Mg Tablet PO 08/20/24 22:59 Q6H PRN Fever >100.4 or Pain 1-3 Hydrocodone Bitart/Acetaminophen 1 tab 07/21/24 23:00 Hydrocodone/Apap 5/325 Tablet PO 07/26/24 22:59 Q6H PRN PAIN SCALE 4-6 (Moderate Albuterol/Ipratropium 3 ml 07/22/24 13:54 Albuterol/Ipratropium (Duoneb) Rt Flori 3 Ml Nebu INH 08/21/24 13:53 Q4HRRT PRN SHORTNESS OF BREATH Atorvastatin Calcium 40 mg 07/22/24 21:00 Atorvastatin Calcium 20 Mg Tablet PO 08/21/24 20:59 HS JOEY Fentanyl Citrate 50 mcg 07/22/24 13:54 Fentanyl Cit Inj 50 Mcg/Ml Amp 2ml IV 07/22/24 15:54 Q5M PRN PAIN SCALE 4-6 (Moderate Hydralazine HCl 10 mg 07/22/24 13:54 Hydralazine Inj 20 Mg/Ml Vial IV 07/22/24 15:54 X1 ONE Hydromorphone HCl 0.5 mg 07/22/24 13:54 Hydromorphone Inj 2 Mg/Ml Vial IVP 07/22/24 15:54 Q10MIN PRN severe pain 7-10 Sodium Chloride 1,000 mls @ 85 mls/hr 07/21/24 20:10 07/22/24 09:05 Ns IV 08/20/24 20:09 85 mls/hr .[id number] JOEY Administration Labetalol HCl 5 mg 07/22/24 13:54 Labetalol Inj 5 Mg/Ml Vial 20 Ml IVP 07/22/24 15:54 Q10MIN PRN SBP >180 DBP>100 or HR >100 Magnesium Hydroxide 30 ml 07/21/24 23:00 Milk Of Magnesia Susp 30 Ml Udc PO 08/20/24 22:59 QDAY PRN CONSTIPATION Protocol Metoprolol Tartrate 2.5 mg 07/22/24 13:54 Metoprolol Tartrate Inj 1 Mg/Ml Amp 5 Ml IVP 07/22/24 15:54 PRN PRN Heart Rate- High Morphine Sulfate 2 mg 07/21/24 23:07 07/22/24 08:38 Morphine Sulf Inj 10 Mg/Ml Vial IVP 07/26/24 22:59 2 mg Q4H PRN Administration PAIN SCALE 7-10 (Severe Ondansetron HCl 4 mg 07/21/24 23:00 Ondansetron Inj 2 Mg/Ml Inj 2 Ml IV 08/20/24 22:59 Q6H PRN NAUSEA OR VOMITING Protocol Promethazine HCl 12.5 mg 07/22/24 13:54 Promethazine Inj 25 Mg/Ml Vial IV 07/22/24 15:54 Q30M PRN NAUSEA Sennosides 1 tab 07/21/24 23:00 Senna Tablet PO 08/20/24 22:59 BID PRN CONSTIPATION Protocol Plan 79-year-old female with past medical history of hyperlipidemia who presented to the ED on 07/21/2024 with a ground level mechanical fall, found to have acute comminuted intertrochanteric right hip fracture, admitted for orthopedic surgery. #Ground level mechanical fall #Acute comminuted intertrochanteric closed right hip fracture Patient had ground level mechanical fall at home, R hip and pelvis X-ray and CT showed acute comminuted intertrochanteric fracture of the right hip. Head and neck CT were negative. Patient denies any prodrome to fall, states she is normally independent. Patient without significant risk factors for surgery, METS >4. Hemoglobin dropped sharply over 24 hours. -Orthopedic surgery was consulted, patient taken today -Cardiology was consulted, cleared patient for surgery -Continue IV fluids NS at 85 ml/hr -Acetaminophen as needed for fever or pain -[place] 5/325 q6h as needed for moderate to severe pain -Morphine 2 mg q4h as needed for severe pain -Zofran as needed for nausea -Monitor hemoglobin closely. #History of hyperlipidemia Patient history, takes atorvastatin at home. -Continue home atorvastatin 40 mg HS DVT prophylaxis: SCD GI prophylaxis: None Diet: NPO Lines: Peripheral IV Code status: Full Code Plan of care discussed with senior resident Dr. Serrano PGY-[address] Wharton. Ruben Fuller MD PGY-1 Attending Provider Attestation/Addendum I attest that I was physically present for the evaluation, physical examination, lab and imaging review of the patient with the residents. I discussed the case with the residents and agree with the findings and plans of care as documented above. Patient is a 79 years old female with past medical history of hyperlipidemia who was admitted to overnight for management of acute comminuted intertrochanteric right hip fracture following a ground-level fall. At bedside today, patient is states her pain is controlled with analgesic as long as she does not move. Patient underwent EKG, echocardiography, had a cardiology consultation, and was cleared for surgery. Orthopedics on board, patient planned for surgery today. Lulu Wharton MD
--- NOTE | 2024-07-22 15:32 | XR_ITS ---
Examination:Right hip AP, lateral, AP pelvis 3 views, AP lateral right femur 2 views Technique: Hip AP lateral, AP pelvis, 3 views, AP lateral right femur 2 views total 5 views Exam date and time:July 22, 2024 1603 hours INDICATIONS: Acute angulated comminuted intertrochanteric fracture right hip July 21, 2024, postop reduction internal fixation hip fracture today FINDINGS: Postop reduction internal fixation intertrochanteric fracture right hip Satisfactory alignment Orthopedic hardware satisfactory position including the intramedullary stem IMPRESSION: Operative reduction internal fixation right hip fracture with satisfactory alignment
--- NOTE | 2024-07-22 15:43 | SUR.PHASEI ---
1543: Pt. wakes to name then drifts back to sleep, vitals stable, breathing unlabored, no signs of distress, dressing to right hip CDI, no active bleed noted, bilateral dorsalis pedis pulses strong and regular, cap refill to bilateral feet less than 3 seconds, report received from Kaylie HAUSER and Angella HAUSER.
--- NOTE | 2024-07-22 16:25 | SUR.PHASEI ---
1625: Pt. AAOx4, vitals stable, breathing unlabored, no complaint of pain or nausea, dressing to right hip CDI, no active bleed noted, pt. tolerated bites of ice chips well, gave report to Kathrin HAUSER, family aware of pt. transfer back to room 379A.
[2024-07-22 16:51] LABS: Hematocrit 28.3 % (36.0-46.0); Hemoglobin 9.4 g/dL (12.0-16.0)
[2024-07-22] MEDS: DEXTROSE 5%-0.45% NS 1,000 ML 80 ML IV (18:24)
[2024-07-22] MEDS: HYDROcodone/APAP 5/325 TABLET 1 TAB PO (19:24)
[2024-07-22] MEDS: ceFAZolin/D5W 1 GM IVPB 1 GM/50 ML BAG IV (21:15)
[2024-07-22] MEDS: ATORVASTATIN CALCIUM 20 MG TABLET 40 MG PO (21:15)
--- NOTE | 2024-07-22 21:51 | ESOP_ITS ---
Date of Procedure 07/22/24 Pre Op Diagnosis Right intertrochanteric hip fracture Post Op Diagnosis Right intertrochanteric hip fracture Procedure Open reduction and internal fixation of right intertrochanteric hip fracture using TFN implant Findings Displaced right intertrochanteric, peritrochanteric hip fracture right lower extremity Procedure Description Patient taken the operating room and the right hip was identified as correct extremity during the timeout procedure. Endotracheal anesthesia was achieved. She received 2 g of IV Ancef. She received platelets. She received 1 g of tranexamic acid before the procedure was initiated. At the end of the procedure she received the second gram of tranexamic acid She was placed on the [place] fracture table. Satisfactory images were achieved. The right lower extremity was prepped and draped standard fashion. a guidepin was used to find the tip of the greater trochanter and it was noted be in good position both in the AP and lateral plane. incision was made down to and through the fascia. Threaded guidepin was advanced and the first pass was too anterior the second pass was centered both in the AP and lateral planes. The trochanteric reamer was passed over the guidepin. The long ball-tipped guidewire was passed through the greater trochanter down the canal. The patient had a tight intramedullary canal and was reamed to 12 mm. A 10 x 235 mm TFN implant was passed over the guidewire. The guidewire was removed and then using the outrigger an incision was made over the proximal lateral femur. It was carried down through the subcutaneous tissue and a guidepin was then directed into the femoral head. The first pass was too anterior and to distal and the implant was repositioned. Guidepin was then passed into the femoral head and was noted to be in satisfactory position both in the AP and lateral planes. Measured 105 mm. The graduated drill bit was set at 100 mm. It was passed over the guidepin into the femoral head. a 100 mm helical bolt was selected. It was passed over the guidepin into the femoral head and was noted to be in satisfactory position. The proximal interference screw was then advanced. After that was done a hole was drilled using the outrigger guide across the femoral shaft. It measured 38 mm and a 40 mm x 5 mm screw was then passed through the justyn and noted to be in satisfactory position. Throughout the procedure the wounds were copiously irrigated with Betadine and saline solution. The wound was closed in layers with 0 Vicryl and 2-0 Vicryl followed by Monocryl subcuticular closure Vancomycin and Gelfoam had been placed at the proximal and distal incisions deep to the fascia before closure. 4 x 4's and ABD pads were applied to the wounds. Sponge needle counts are correct. The patient was was taken the recovery room uneventfully Anesthesia GETA Drains None Implants Synthes 10 x 235 mm TFN nail, 100 mm helical bolt, 5 mm x 40mm screw Pathology / specimen None Pathology comment: None IVF Infused 900 Urine Output 0 Estimated Blood Loss 70 Condition Stable Surgeon Aaron Coulter MD Surgical Staff Operation Date: 07/22/24 13:15 Case Staff Assisting Surgeon: Redd Garcia CERT OCCUPATIONAL THERAPY ASST: Angella Funk RN First Assistant: Karen Waldron
[2024-07-23] VITALS (7 sets, daily range): BP systolic 111–133; BP diastolic 46–58; PULSE 68–87; RESP 16–97; TEMP 36.2–36.9; O2SAT 92–98; BMI 11.0
[2024-07-23] MEDS: HYDROcodone/APAP 5/325 TABLET 1 TAB PO ×4 (01:56→21:59)
[2024-07-23] MEDS: ceFAZolin/D5W 1 GM IVPB 1 GM/50 ML BAG IV (05:30)
[2024-07-23 06:31] LABS: Basophils % (Auto) 0 % (0-2.5); Eosinophils % (Auto) 0 % (0-10); Hematocrit 23.7 % (36.0-46.0); Immature Granulocytes % (Auto) 0 % (0-0); Immature Granulocytes Auto 0.03 Thou/mm3 (0.00-0.00); Lymphocytes # (Auto) 0.5 Thou/mm3 (1.0-4.8); Lymphocytes % (Auto) 6 % (10-50); Mean Corpuscular HGB Conc 34.2 g/dl (31.0-37.0); Mean Corpuscular Hemoglobin 32.4 pg (25.0-35.0); Mean Corpuscular Volume 95 fL (80-100); Monocytes # (Auto) 0.4 Thou/mm3 (0.0-0.8); Monocytes % (Auto) 6 % (0-12); Neutrophils # (Auto) 6.6 Thou/mm3 (1.8-7.7); Neutrophils % (Auto) 88 % (37-80); Nucleated Red Blood Cell % 0 /100 WBC (0); Platelet Count 131 Thou/mm3 (140-440); RDW Standard Deviation 46.1 fL (36.4-46.3); White Blood Count 7.6 Thou/mm3 (3.6-11.0)
[2024-07-23 06:42] LABS: Hemoglobin 8.1 g/dL (12.0-16.0)
[2024-07-23 07:08] LABS: Anion Gap 7 (7-16); BUN/Creatinine Ratio 28 Ratio (12-20); Blood Urea Nitrogen 22 mg/dL (9-23); Calcium 8.2 mg/dL (8.3-10.6); Carbon Dioxide 25.7 mMol/L (20.0-31.0); Chloride 107 mMol/L (98-107); Creatinine (Component) 0.8 mg/dL (0.6-1.3); Estimated Creatinine Clearance 59.4 mL/min (>60); Glucose 224 mg/dL (74-106); Magnesium 1.7 mg/dL (1.6-2.6); Osmolality,Calculated 289 (275-295); Phosphorous 2.2 mg/dL (2.4-5.1); Potassium 3.9 mMol/L (3.4-5.1); Sodium 140 mMol/L (136-145); eGFR > 60 See Note
[2024-07-23] MEDS: DOCUSATE SOD 100 MG CAPSULE PO (09:11)
[2024-07-23] MEDS: PANTOPRAZOLE 40 MG TABLET PO (09:11)
[2024-07-23] MEDS: NALOXEGOL OXALATE 25 MG TABLET (NON-FORMULARY) PO (09:11)
[2024-07-23] MEDS: POLYETHYLENE GLYCOL 17 GM PACKET PO (11:57)
[2024-07-23] MEDS: Magnesium Sulfate 4 GM Ivpb 4 GM/50 ML BAG IV (11:57)
[2024-07-23] MEDS: NAPH,KPH MBDB 1 PACKET (1.5 GM) PO (11:57)
[2024-07-23 13:51] LABS: Hemoglobin 8.3 g/dL (12.0-16.0)
--- NOTE | 2024-07-23 14:26 | ESPR_ITS ---
<Statement entered by Del Guzman MD - 07/24/24 13:05> The patient is evaluated by me personally appears to be doing clinically well no chest pain shortness of breath underwent surgery with no complications. Continue to monitor the patient for any cardiac arrhythmias overnight agree with the treatment plan recommendation is for resident physician PGY 2 Dr. De La Torre Documentation for date of: 07/23/24 Subjective Subjective Interval history: Overnight, no acute events reported. Patient denies any acute pain at this time. Patient's hip surgery went well. PT evaluated the patient, and recommended short-term stay at rehab, however patient refused, and will require home health at discharge. Patient's hemoglobin is 8 today compared to 13 when she came in in the ED. Will continue to monitor H&H every 4 hours as well as surgery site to discuss any signs of bleeding. Otherwise, patient is resting well, receiving her pain meds as needed for pain. Exam Vital Signs Temp Pulse Resp BP Pulse Ox O2 Del Method O2 Flow Rate 97.2 F 73 18 114/51 L 96 Room Air 10 07/23/24 12:00 07/23/24 12:00 07/23/24 12:00 07/23/24 12:00 07/23/24 12:00 07/23/24 08:00 07/22/24 15:58 Narrative Exam General Appearance: Pt is awake and alert in NAD laying flat in bed. Elderly female, able to carry a conversation, well-nourished, and well-developed. HEENT: NC/AT, no scleral icterus, no conjunctival pallor, MMM Lungs: CTAB, no wheezes or crackles appreciated CVS: RRR, S1/S2 heard, no murmurs or rubs appreciated ABD: Soft, non-tender, non-distended, BS + in all 4 quadrants EXT: Right hip today appears to be edematous compared to left, otherwise tender to palpation, no hematoma or ecchymosis noted. Warm to touch otherwise. Distal pulses 2+ bilaterally. SKIN: Skin exam normal without any rashes. Neuro: A&O x 3. No gross neurological deficits. Motor and sensory grossly intact in B/L UL and LL except for right lower extremity due to pain. Surgical site and dressing intact with no signs of bleeding. Psych: Appropriate mood and affect Objective Labs 07/23/24 13:13 07/23/24 05:49 Labs: Laboratory Results - last 24 hr 07/21/24 07/22/24 07/23/24 22:17 16:40 05:49 WBC 7.6 RBC 2.50 L Hgb 9.4 L 8.1 L Hct 28.3 L 23.7 L MCV 95 MCH 32.4 MCHC 34.2 RDW Std Deviation 46.1 Plt Count 131 L D Neut % (Auto) 88 H Lymph % (Auto) 6 L [place] % (Auto) 6 Eos % (Auto) 0 Baso % (Auto) 0 Neut # (Auto) 6.6 Lymph # (Auto) 0.5 L [place] # (Auto) 0.4 Eos # (Auto) 0.0 Baso # (Auto) 0.0 Immature Gran # (Auto) 0.03 H Absolute Nucleated RBC 0.00 Immature Gran % 0 Nucleated RBC % 0 Sodium 140 Potassium 3.9 Chloride 107 Carbon Dioxide 25.7 Anion Gap 7 BUN 22 Creatinine 0.8 Estim Creat Clear Calc 59.4 L eGFR > 60 BUN/Creatinine Ratio 28 H Glucose 224 H Calculated Osmolality 289 Calcium 8.2 L Phosphorus 2.2 L Magnesium 1.7 Blood Type A Positive Antibody Screen NEGATIVE Crossmatch See Detail Blood Bank Wristband ID Yes Blood Bank Comment PLATP Ready 07/23/24 13:13 WBC RBC Hgb 8.3 L Hct 25.0 L MCV MCH MCHC RDW Std Deviation Plt Count Neut % (Auto) Lymph % (Auto) [place] % (Auto) Eos % (Auto) Baso % (Auto) Neut # (Auto) Lymph # (Auto) [place] # (Auto) Eos # (Auto) Baso # (Auto) Immature Gran # (Auto) Absolute Nucleated RBC Immature Gran % Nucleated RBC % Sodium Potassium Chloride Carbon Dioxide Anion Gap BUN Creatinine Estim Creat Clear Calc eGFR BUN/Creatinine Ratio Glucose Calculated Osmolality Calcium Phosphorus Magnesium Blood Type Antibody Screen Crossmatch Blood Bank Wristband ID Blood Bank Comment Quality Measures Quality Measures VTE prophylaxis Advance care planning discussed with:: patient Assessment & Plan Assessment Current Active Medications: Generic Name Dose Route Start Last Admin Trade Name Freq PRN Reason Stop Dose Admin Acetaminophen 650 mg 07/22/24 11:21 Acetaminophen 325 Mg Tablet PO 08/20/24 22:59 Q6H PRN Fever >100.4 or Pain 1-3 Hydrocodone Bitart/Acetaminophen 1 tab 07/21/24 23:00 07/23/24 09:11 Hydrocodone/Apap 5/325 Tablet PO 07/26/24 22:59 1 tab Q6H PRN Administration PAIN SCALE 4-6 (Moderate Atorvastatin Calcium 40 mg 07/22/24 21:00 07/22/24 21:15 Atorvastatin Calcium 20 Mg Tablet PO 08/21/24 20:59 40 mg HS JOEY Administration Docusate Sodium 100 mg 07/23/24 09:00 07/23/24 09:11 Docusate Sod 100 Mg Capsule PO 08/22/24 08:59 100 mg QDAY JOEY Administration Sodium Chloride 1,000 mls @ 20 mls/hr 07/23/24 15:29 Ns IV 08/22/24 15:28 .Q24H JOEY Magnesium Hydroxide 30 ml 07/21/24 23:00 Milk Of Magnesia Susp 30 Ml Udc PO 08/20/24 22:59 QDAY PRN CONSTIPATION Protocol Morphine Sulfate 2 mg 07/21/24 23:07 07/22/24 08:38 Morphine Sulf Inj 10 Mg/Ml Vial IVP 07/26/24 22:59 2 mg Q4H PRN Administration PAIN SCALE 7-10 (Severe Naloxegol 25 mg 07/23/24 09:00 07/23/24 09:11 Naloxegol Oxalate 25 Mg Tablet (Non-Formulary) PO 08/22/24 08:59 25 mg QDAY JOEY Administration Ondansetron HCl 4 mg 07/21/24 23:00 Ondansetron Inj 2 Mg/Ml Inj 2 Ml IV 08/20/24 22:59 Q6H PRN NAUSEA OR VOMITING Protocol Pantoprazole Sodium 40 mg 07/23/24 09:00 07/23/24 09:11 Pantoprazole 40 Mg Tablet PO 08/22/24 08:59 40 mg QDAY JOEY Administration Polyethylene Glycol 17 gm 07/23/24 09:45 07/23/24 11:57 Polyethylene Glycol 17 Gm Packet PO 08/22/24 09:44 17 gm QDAY JOEY Administration Sennosides 1 tab 07/21/24 23:00 Senna Tablet PO 08/20/24 22:59 BID PRN CONSTIPATION Protocol Plan Ms. Falk is a 79-year-old female with past medical history significant for hyperlipidemia who presented to the ED after suffering a ground-level fall. Cardiology was consulted for pre-op cardiac clearance prior to orthopedic surgery, which was performed yesterday. #Pre-op cardiovascular examination, intermediate risk surgery #Ground-level fall #Right intertrochanteric hip fracture s/p ORIF Patient has a clear acute right intertrochanteric hip fracture and requires surgery. Pt's orthopedic surgery falls under the intermediate risk category, and suggests a 1-5% risk of adverse cardiac events. Patient's Revised Cardiac Risk Index (RCRI) is 0. All components have been reviewed. Pt hasn't had any cardiac risk factors except for hyperlipidemia and family cardiac history. Patient has had an angiogram with blockage noted in the past but no stent placed, as per previous equipment operator/laborer, Dr. Waldrop. Patient has never had any ACS symptoms or recent OH or Heart Failure. Echo revealed normal LV size and function with an EF 60-65%. Normal RV size and function. Based on patient's clinical, family, and physical findings, patient is at low cardiac risk for surgery. ORIF was yesterday, was successful. -Continue to control patient's pain with Morphine and [place] -DVT prophylaxis currently held -Continue with DVT prophylaxis with SCDs, and f/u with anticoagulation per Ortho recs prior to discharge -At this time, cardiology will sign off, please feel free to consult us again if new concerns arise. Patient's plan and care discussed with my attending, Dr. Thomas De La Torre MD PGY-2
--- NOTE | 2024-07-23 14:31 | PC.SS ---
SS follow up note; SS met with patient in regards to discharge plan. Patient refusing SNF and would like to discharge home with HH. SS will order [facility] for patient. SS submitted DME inquiry through [employer]. Patient has no preference in HH agency. SS will notify Dr. Wharton to input HH order.
--- NOTE | 2024-07-23 14:33 | PC.SS ---
Walkers The diagnosis creates mobility limitation that significantly impairs ability to participate in the patients activities of daily living either in their entirety, or in a reasonable time frame. Also the patient is able to safely use the walker and the patient?s mobility is sufficiently resolved with the use of the walker and cane has been ruled out.
--- NOTE | 2024-07-23 15:55 | ESPR_ITS ---
<Statement entered by Brian Serrano MD - 07/23/24 18:08> Patient was seen and examined at the bedside. Patient is postop day 1 after surgery for right acute hip fracture post ground-level fall. Patient was started on D5 half NS by orthopedics which was discontinued as patient was eating and drinking well and her blood sugars were elevated this morning. Patient had continued drop of hemoglobin most recent was 8.1. Will follow-up with H&H at midnight for close monitoring. Night team was signed out that patient will need close monitoring if she becomes hypotensive and would recommend to follow-up and evaluate patient's lower extremity for bruising or bleeding. Will likely add Eliquis 2.5 mg daily for DVT prophylaxis tomorrow morning if hemoglobin remains stable. No concern for GI bleed at this point. Will likely follow with surgery recommendations tomorrow. Electrolytes were repleted as necessary. All labs and orders were reviewed I saw and examined the patient, and I agree with current management stated by Dr Jonny MD,PGY1. Plan of care was discussed with the attending physician and resident physician. Disclaimer: Despite multiple revisions, due to the dictation software being used, the document bellow may not be free of grammatical errors including phonetic/typographic errors. However, this does not deter from our commitment to providing health care in the patient's best interest in mind. Dr. Zach MD, PGY 2 Documentation for date of: 07/23/24 Subjective Subjective Interval history: Patient received right hip repair, well tolerated. Patient seen and examined at bedside. Patient denies pain, weakness, lethargy, SOB. Glucose elevated, pending fingerstick recheck. Monitor H&H closely. Exam Vital Signs Temp Pulse Resp BP Pulse Ox O2 Del Method O2 Flow Rate 97.2 F 73 18 114/51 L 96 Room Air 10 07/23/24 12:00 07/23/24 12:00 07/23/24 12:00 07/23/24 12:07/23/24 12:07/23/24 08:07/22/24 15:58 Narrative Exam Physical Exam General: Awake and in no acute distress. Elderly female conversational and non- toxic appearing. HEENT: Normocephalic, atraumatic, mucous membranes moist. Heart: Regular rate and rhythm, no murmurs. Lungs: Clear to auscultation with no wheezing or crackles. Abdomen: Soft, nondistended, nontender, positive bowel sounds. ?No guarding or rebound tenderness. Neurologic: Alert and oriented x3, no gross neurological deficit, and patient able to move all 4 extremities. Extremities: Right hip is edematous, no notable abrasions, hematoma, ecchymoses. Surgical dressing dry and intact. Able to move bilateral toes. Peripheral pulses intact. Legs equal length. Skin: No rash or ecchymoses. Objective Labs 07/24/24 04:38 07/24/24 04:38 Labs: Laboratory Results - last 24 hr 07/21/24 07/22/24 07/23/24 22:17 16:40 05:49 WBC 7.6 RBC 2.50 L Hgb 9.4 L 8.1 L Hct 28.3 L 23.7 L MCV 95 MCH 32.4 MCHC 34.2 RDW Std Deviation 46.1 Plt Count 131 L D Neut % (Auto) 88 H Lymph % (Auto) 6 L [place] % (Auto) 6 Eos % (Auto) 0 Baso % (Auto) 0 Neut # (Auto) 6.6 Lymph # (Auto) 0.5 L [place] # (Auto) 0.4 Eos # (Auto) 0.0 Baso # (Auto) 0.0 Immature Gran # (Auto) 0.03 H Absolute Nucleated RBC 0.00 Immature Gran % 0 Nucleated RBC % 0 Sodium 140 Potassium 3.9 Chloride 107 Carbon Dioxide 25.7 Anion Gap 7 BUN 22 Creatinine 0.8 Estim Creat Clear Calc 59.4 L eGFR > 60 BUN/Creatinine Ratio 28 H Glucose 224 H Calculated Osmolality 289 Calcium 8.2 L Phosphorus 2.2 L Magnesium 1.7 Blood Type A Positive Antibody Screen NEGATIVE Crossmatch See Detail Blood Bank Wristband ID Yes Blood Bank Comment PLATP Ready 07/23/24 13:13 WBC RBC Hgb 8.3 L Hct 25.0 L MCV MCH MCHC RDW Std Deviation Plt Count Neut % (Auto) Lymph % (Auto) [place] % (Auto) Eos % (Auto) Baso % (Auto) Neut # (Auto) Lymph # (Auto) [place] # (Auto) Eos # (Auto) Baso # (Auto) Immature Gran # (Auto) Absolute Nucleated RBC Immature Gran % Nucleated RBC % Sodium Potassium Chloride Carbon Dioxide Anion Gap BUN Creatinine Estim Creat Clear Calc eGFR BUN/Creatinine Ratio Glucose Calculated Osmolality Calcium Phosphorus Magnesium Blood Type Antibody Screen Crossmatch Blood Bank Wristband ID Blood Bank Comment Quality Measures Quality Measures VTE prophylaxis Advance care planning discussed with:: patient Assessment & Plan Assessment Current Active Medications: Generic Name Dose Route Start Last Admin Trade Name Freq PRN Reason Stop Dose Admin Acetaminophen 650 mg 07/22/24 11:21 Acetaminophen 325 Mg Tablet PO 08/20/24 22:59 Q6H PRN Fever >100.4 or Pain 1-3 Hydrocodone Bitart/Acetaminophen 1 tab 07/21/24 23:00 07/23/24 09:11 Hydrocodone/Apap 5/325 Tablet PO 07/26/24 22:59 1 tab Q6H PRN Administration PAIN SCALE 4-6 (Moderate Atorvastatin Calcium 40 mg 07/22/24 21:00 07/22/24 21:15 Atorvastatin Calcium 20 Mg Tablet PO 08/21/24 20:59 40 mg HS JOEY Administration Docusate Sodium 100 mg 07/23/24 09:00 07/23/24 09:11 Docusate Sod 100 Mg Capsule PO 08/22/24 08:59 100 mg QDAY JOEY Administration Sodium Chloride 1,000 mls @ 20 mls/hr 07/23/24 15:29 Ns IV 08/22/24 15:28 .Q24H JOEY Magnesium Hydroxide 30 ml 07/21/24 23:00 Milk Of Magnesia Susp 30 Ml Udc PO 08/20/24 22:59 QDAY PRN CONSTIPATION Protocol Morphine Sulfate 2 mg 07/21/24 23:07 07/22/24 08:38 Morphine Sulf Inj 10 Mg/Ml Vial IVP 07/26/24 22:59 2 mg Q4H PRN Administration PAIN SCALE 7-10 (Severe Naloxegol 25 mg 07/23/24 09:00 07/23/24 09:11 Naloxegol Oxalate 25 Mg Tablet (Non-Formulary) PO 08/22/24 08:59 25 mg QDAY JOEY Administration Ondansetron HCl 4 mg 07/21/24 23:00 Ondansetron Inj 2 Mg/Ml Inj 2 Ml IV 08/20/24 22:59 Q6H PRN NAUSEA OR VOMITING Protocol Pantoprazole Sodium 40 mg 07/23/24 09:00 07/23/24 09:11 Pantoprazole 40 Mg Tablet PO 08/22/24 08:59 40 mg QDAY JOEY Administration Polyethylene Glycol 17 gm 07/23/24 09:45 07/23/24 11:57 Polyethylene Glycol 17 Gm Packet PO 08/22/24 09:44 17 gm QDAY JOEY Administration Sennosides 1 tab 07/21/24 23:00 Senna Tablet PO 08/20/24 22:59 BID PRN CONSTIPATION Protocol Plan 79-year-old female with past medical history of hyperlipidemia who presented to the ED on 07/21/2024 with a ground level mechanical fall, found to have acute comminuted intertrochanteric right hip fracture, admitted for orthopedic surgery. #Ground level mechanical fall #Acute comminuted intertrochanteric closed right hip fracture, s/p surgical repair #Acute anemia Patient had ground level mechanical fall at home, R hip and pelvis X-ray and CT showed acute comminuted intertrochanteric fracture of the right hip. Head and neck CT were negative. Patient denies any prodrome to fall, states she is normally independent. Patient without significant risk factors for surgery, METS >4. Hemoglobin dropped sharply over 48 hours, suspect related to hip fracture and surgery. Patient received repair surgery, well-tolerated. -Orthopedic surgery was consulted, patient taken today -Cardiology was consulted, cleared patient for surgery -Continue IV fluids NS at 20 ml/hr -Acetaminophen as needed for fever or pain -[place] 5/325 q6h as needed for moderate to severe pain -Morphine 2 mg q4h as needed for severe pain -Zofran as needed for nausea -Monitor hemoglobin closely. #History of hyperlipidemia Patient history, takes atorvastatin at home. -Continue home atorvastatin 40 mg HS DVT prophylaxis: SCD GI prophylaxis: None Diet: Regular Lines: Peripheral IV Code status: Full Code Plan of care discussed with senior resident Dr. Serrano PGY-[address] Wharton. Ruben Fuller MD PGY-1 Attending Provider Attestation/Addendum I attest that I was physically present for the evaluation, physical examination, lab and imaging review of the patient with the residents. I discussed the case with the residents and agree with the findings and plans of care as documented above. Patient is postop day 1 after surgery for right hip fracture.? At bedside, she appears comfortable.? States that she has pain only while moving otherwise well- controlled with analgesics.? Hemoglobin noted to be dropped to 8.1.? Possibly secondary to hematoma earlier and blood loss during surgery.? We will closely monitor the hemoglobin level.? Will hold off on the DVT prophylaxis and start tomorrow if hemoglobin remains stable.? Denies any bloody vomit or stool. Lulu Wharton MD
[2024-07-23] MEDS: SODIUM CHLORIDE 0.9% 1000 ML 1,000 ML 20 ML IV (16:04)
--- NOTE | 2024-07-23 18:50 | CONPN_ITS ---
Subjective Subjective Brief History: Patient was in her kitchen and started back up caught her shoe fell backwards and injured her right hip no complaints of pain in her right knee right ankle or foot no complaints of pain in her shoulders elbows wrist hands or fingers Narrative: Pain right hip better Exam Vital Signs Temp Pulse Resp BP Pulse Ox O2 Del Method O2 Flow Rate 97.2 F 73 18 114/51 L 96 Room Air 10 07/23/24 12:00 07/23/24 12:00 07/23/24 12:00 07/23/24 12:00 07/23/24 12:00 07/23/24 08:00 07/22/24 15:58 Blood pressure 114/51, pulse 73 Narrative Exam . Looks very comfortable. Able to flex and extend right knee good active flexion extension right ankle right foot. Wound dressing dry Objective - Ortho Labs 07/23/24 13:13 07/23/24 05:49 Labs: Laboratory Results - last 24 hr 07/21/24 07/23/24 07/23/24 22:17 05:49 13:13 WBC 7.6 RBC 2.50 L Hgb 8.1 L 8.3 L Hct 23.7 L 25.0 L MCV 95 MCH 32.4 MCHC 34.2 RDW Std Deviation 46.1 Plt Count 131 L D Neut % (Auto) 88 H Lymph % (Auto) 6 L [place] % (Auto) 6 Eos % (Auto) 0 Baso % (Auto) 0 Neut # (Auto) 6.6 Lymph # (Auto) 0.5 L [place] # (Auto) 0.4 Eos # (Auto) 0.0 Baso # (Auto) 0.0 Immature Gran # (Auto) 0.03 H Absolute Nucleated RBC 0.00 Immature Gran % 0 Nucleated RBC % 0 Sodium 140 Potassium 3.9 Chloride 107 Carbon Dioxide 25.7 Anion Gap 7 BUN 22 Creatinine 0.8 Estim Creat Clear Calc 59.4 L eGFR > 60 BUN/Creatinine Ratio 28 H Glucose 224 H Calculated Osmolality 289 Calcium 8.2 L Phosphorus 2.2 L Magnesium 1.7 Blood Type A Positive Antibody Screen NEGATIVE Crossmatch See Detail Blood Bank Wristband ID Yes Blood Bank Comment PLATP Ready Hemoglobin 8.1 this morning., Hemoglobin 8.3 this afternoon Assessment & Plan Assessment Additional comments: Postop day 1 Plan Admission hemoglobin 13.5, hemoglobin this afternoon 8.3. I wanted to transfuse her 1 unit of packed cells this morning. It was not done. Will wait for the H&H this evening before making that decision. Documentation for date of: 07/23/24
[2024-07-23 19:21] LABS: Basophils % (Auto) 0 % (0-2.5); Eosinophils # (Auto) 0.1 Thou/mm3 (0.0-0.5); Eosinophils % (Auto) 1 % (0-10); Hematocrit 24.1 % (36.0-46.0); Immature Granulocytes % (Auto) 1 % (0-0); Immature Granulocytes Auto 0.04 Thou/mm3 (0.00-0.00); Lymphocytes # (Auto) 1.1 Thou/mm3 (1.0-4.8); Lymphocytes % (Auto) 13 % (10-50); Mean Corpuscular HGB Conc 33.6 g/dl (31.0-37.0); Mean Corpuscular Hemoglobin 32.1 pg (25.0-35.0); Mean Corpuscular Volume 96 fL (80-100); Monocytes # (Auto) 0.5 Thou/mm3 (0.0-0.8); Monocytes % (Auto) 6 % (0-12); Neutrophils # (Auto) 6.7 Thou/mm3 (1.8-7.7); Neutrophils % (Auto) 80 % (37-80); Nucleated Red Blood Cell % 0 /100 WBC (0); Platelet Count 151 Thou/mm3 (140-440); RDW Standard Deviation 47.6 fL (36.4-46.3); Red Blood Count 2.52 Miln/mm3 (4.00-5.20); White Blood Count 8.3 Thou/mm3 (3.6-11.0)
[2024-07-23 19:28] LABS: Hemoglobin 8.1 g/dL (12.0-16.0)
[2024-07-23 19:57] LABS: Alanine Aminotransferase 21 U/L (10-49); Albumin, Serum 3.3 gm/dL (3.4-4.8); Albumin/Globulin Ratio 1.9 (1.2-2.2); Alkaline Phosphatase 50 U/L (46-116); Anion Gap 7 (7-16); Aspartate Amino Transferase 17 U/L (0-34); BUN/Creatinine Ratio 28 Ratio (12-20); Bilirubin,Total 0.5 mg/dL (0.3-1.2); Blood Urea Nitrogen 22 mg/dL (9-23); Calcium 8.1 mg/dL (8.3-10.6); Calcium (Corrected) 8.7 mg/dL (8.5-10.1); Carbon Dioxide 26.5 mMol/L (20.0-31.0); Chloride 107 mMol/L (98-107); Creatinine (Component) 0.8 mg/dL (0.6-1.3); Estimated Creatinine Clearance 59.4 mL/min (>60); Globulin 1.7 gm/dL (2.3-3.5); Glucose 198 mg/dL (74-106); Osmolality,Calculated 288 (275-295); Sodium 140 mMol/L (136-145); eGFR > 60 See Note
--- NOTE | 2024-07-23 20:03 | PC.NURSE ---
Dr lozano notified of pts Hgb and Hct 8.1 and 24.1, blake states to order CBC for the morning and do not transfuse tonight. Do not give any anticoagulants without clearing it with him before.
[2024-07-23] MEDS: ATORVASTATIN CALCIUM 20 MG TABLET 40 MG PO (20:27)
[2024-07-23 21:47] LABS: Hematocrit 23.3 % (36.0-46.0)
[2024-07-23 22:17] LABS: Hemoglobin 7.8 g/dL (12.0-16.0)
[2024-07-24] VITALS (13 sets, daily range): BP systolic 106–131; BP diastolic 42–63; PULSE 74–90; RESP 16–98; TEMP 36.3–37.7; O2SAT 92–99; BMI 11.0; BMI 22.9
[2024-07-24 05:17] LABS: Basophils % (Auto) 0 % (0-2.5); Eosinophils # (Auto) 0.1 Thou/mm3 (0.0-0.5); Eosinophils % (Auto) 2 % (0-10); Immature Granulocytes % (Auto) 0 % (0-0); Immature Granulocytes Auto 0.02 Thou/mm3 (0.00-0.00); Lymphocytes # (Auto) 1.4 Thou/mm3 (1.0-4.8); Lymphocytes % (Auto) 22 % (10-50); Mean Corpuscular HGB Conc 33.5 g/dl (31.0-37.0); Mean Corpuscular Hemoglobin 31.6 pg (25.0-35.0); Mean Corpuscular Volume 94 fL (80-100); Monocytes # (Auto) 0.5 Thou/mm3 (0.0-0.8); Monocytes % (Auto) 8 % (0-12); Neutrophils # (Auto) 4.2 Thou/mm3 (1.8-7.7); Neutrophils % (Auto) 67 % (37-80); Nucleated Red Blood Cell % 0 /100 WBC (0); Platelet Count 123 Thou/mm3 (140-440); RDW Standard Deviation 46.9 fL (36.4-46.3); Red Blood Count 2.34 Miln/mm3 (4.00-5.20); White Blood Count 6.2 Thou/mm3 (3.6-11.0)
[2024-07-24 05:26] LABS: Hematocrit 22.1 % (36.0-46.0); Hemoglobin 7.4 g/dL (12.0-16.0)
[2024-07-24 06:37] LABS: Alanine Aminotransferase 18 U/L (10-49); Albumin, Serum 2.9 gm/dL (3.4-4.8); Albumin/Globulin Ratio 1.6 (1.2-2.2); Alkaline Phosphatase 46 U/L (46-116); Anion Gap 3 (7-16); Aspartate Amino Transferase 21 U/L (0-34); BUN/Creatinine Ratio 33 Ratio (12-20); Bilirubin,Total 0.5 mg/dL (0.3-1.2); Blood Urea Nitrogen 23 mg/dL (9-23); Calcium 7.9 mg/dL (8.3-10.6); Calcium (Corrected) 8.8 mg/dL (8.5-10.1); Carbon Dioxide 28.1 mMol/L (20.0-31.0); Chloride 111 mMol/L (98-107); Creatinine (Component) 0.7 mg/dL (0.6-1.3); Estimated Creatinine Clearance 67.9 mL/min (>60); Globulin 1.8 gm/dL (2.3-3.5); Glucose 110 mg/dL (74-106); Magnesium 2.1 mg/dL (1.6-2.6); Osmolality,Calculated 287 (275-295); Phosphorous 2.7 mg/dL (2.4-5.1); Potassium 4.2 mMol/L (3.4-5.1); Sodium 142 mMol/L (136-145); Total Protein 4.7 gm/dL (5.7-8.2); eGFR > 60 See Note
[2024-07-24] MEDS: HYDROcodone/APAP 5/325 TABLET 1 TAB PO ×2 (07:25→21:22)
[2024-07-24] MEDS: DOCUSATE SOD 100 MG CAPSULE PO (08:42)
[2024-07-24] MEDS: POLYETHYLENE GLYCOL 17 GM PACKET PO (08:42)
[2024-07-24] MEDS: PANTOPRAZOLE 40 MG TABLET PO (08:42)
[2024-07-24] MEDS: NALOXEGOL OXALATE 25 MG TABLET (NON-FORMULARY) PO (08:42)
--- NOTE | 2024-07-24 10:14 | PC.NURSE ---
Attempted to call Dr. Scott this morning at 08:00 to update on hgb and hct. Left message. Attempted again at 0950. Contacted hospitalist Dr. Carcamo to update.
--- NOTE | 2024-07-24 11:44 | PC.SS ---
SS has sent inquiry to local SNF using [facility].
--- NOTE | 2024-07-24 14:59 | ESPR_ITS ---
<Statement entered by Brian Serrano MD - 07/24/24 15:21> Patient was seen and examined at the bedside. Patient is currently postop day 2 after hip fracture surgery. She was complaining of mild pain and denied any bowel movement. Her hemoglobin dropped to 7.4 and orthopedic recommended to transfuse 1 unit PRBC. Will likely follow on post H&H and ordered an FOBT to rule out GI bleed. Currently holding DVT prophylaxis with Eliquis as patient is currently having low hemoglobin and drop 5 units in 3 days. Blood pressure remained stable. Will likely follow-up with post H&H. Continue with pain management. All labs and orders were reviewed. I saw and examined the patient, and I agree with current management stated by Dr Jonny MD,PGY1. Plan of care was discussed with the attending physician and resident physician. Disclaimer: Despite multiple revisions, due to the dictation software being used, the document bellow may not be free of grammatical errors including phonetic/typographic errors. However, this does not deter from our commitment to providing health care in the patient's best interest in mind. Dr. Zach MD, PGY 2 Documentation for date of: 07/24/24 Subjective Subjective Interval history: No overnight events. Patient seen and examined at bedside. Patient reports feeling well, some difficulty with physical therapy due to pain. Patient reports right hip pain well-controlled with [place], has not needed IV analgesics. Denies weakness, shortness of breath, lightheadedness, fatigue, abdominal pain, nausea, vomiting. Has not had a bowel movement since admission. Hemoglobin continues to downtrend, 1 unit PRBCs transfused. Will continue to monitor closely. Exam Vital Signs Temp Pulse Resp BP Pulse Ox O2 Del Method O2 Flow Rate 99 F 83 17 106/47 L 96 Room Air 10 07/24/24 14:12 07/24/24 14:12 07/24/24 14:12 07/24/24 14:12 07/24/24 14:12 07/24/24 11:56 07/24/24 04:00 Narrative Exam Physical Exam General: Awake and in no acute distress. Elderly female conversational and non- toxic appearing. HEENT: Normocephalic, atraumatic, mucous membranes moist. Heart: Regular rate and rhythm, no murmurs. Lungs: Clear to auscultation with no wheezing or crackles. Abdomen: Soft, nondistended, nontender, positive bowel sounds. ?No guarding or rebound tenderness. Neurologic: Alert and oriented x3, no gross neurological deficit, and patient able to move all 4 extremities. Extremities: Right hip is mildly tender, no notable abrasions, hematoma, ecchymoses. Surgical dressing dry and intact. Able to move bilateral toes. Peripheral pulses intact. Legs equal length. Skin: No rash or ecchymoses. Objective Labs 07/24/24 04:38 07/24/24 04:38 Labs: Laboratory Results - last 24 hr 07/21/24 07/23/24 07/23/24 22:17 19:07 21:30 WBC 8.3 RBC 2.52 L Hgb 8.1 L 7.8 L Hct 24.1 L 23.3 L MCV 96 MCH 32.1 MCHC 33.6 RDW Std Deviation 47.6 H Plt Count 151 Neut % (Auto) 80 Lymph % (Auto) 13 [place] % (Auto) 6 Eos % (Auto) 1 Baso % (Auto) 0 Neut # (Auto) 6.7 Lymph # (Auto) 1.1 [place] # (Auto) 0.5 Eos # (Auto) 0.1 Baso # (Auto) 0.0 Immature Gran # (Auto) 0.04 H Absolute Nucleated RBC 0.00 Immature Gran % 1 H Nucleated RBC % 0 Sodium 140 Potassium 4.0 Chloride 107 Carbon Dioxide 26.5 Anion Gap 7 BUN 22 Creatinine 0.8 Estim Creat Clear Calc 59.4 L eGFR > 60 BUN/Creatinine Ratio 28 H Glucose 198 H Calculated Osmolality 288 Calcium 8.1 L Corrected Calcium 8.7 Phosphorus Magnesium Total Bilirubin 0.5 AST 17 ALT 21 Alkaline Phosphatase 50 D Total Protein 5.0 L Albumin 3.3 L D Globulin 1.7 L Albumin/Globulin Ratio 1.9 Blood Type A Positive Antibody Screen NEGATIVE Crossmatch See Detail Blood Bank Wristband ID Yes Blood Bank Comment PLATP Ready 07/24/24 04:38 WBC 6.2 RBC 2.34 L Hgb 7.4 L Hct 22.1 L MCV 94 MCH 31.6 MCHC 33.5 RDW Std Deviation 46.9 H Plt Count 123 L Neut % (Auto) 67 Lymph % (Auto) 22 [place] % (Auto) 8 Eos % (Auto) 2 Baso % (Auto) 0 Neut # (Auto) 4.2 Lymph # (Auto) 1.4 [place] # (Auto) 0.5 Eos # (Auto) 0.1 Baso # (Auto) 0.0 Immature Gran # (Auto) 0.02 H Absolute Nucleated RBC 0.00 Immature Gran % 0 Nucleated RBC % 0 Sodium 142 Potassium 4.2 Chloride 111 H Carbon Dioxide 28.1 Anion Gap 3 L BUN 23 Creatinine 0.7 Estim Creat Clear Calc 67.9 eGFR > 60 BUN/Creatinine Ratio 33 H Glucose 110 H D Calculated Osmolality 287 Calcium 7.9 L Corrected Calcium 8.8 Phosphorus 2.7 Magnesium 2.1 Total Bilirubin 0.5 AST 21 ALT 18 Alkaline Phosphatase 46 Total Protein 4.7 L Albumin 2.9 L Globulin 1.8 L Albumin/Globulin Ratio 1.6 Blood Type Antibody Screen Crossmatch Blood Bank Wristband ID Blood Bank Comment Quality Measures Quality Measures VTE prophylaxis Advance care planning discussed with:: patient Assessment & Plan Assessment Current Active Medications: Generic Name Dose Route Start Last Admin Trade Name Freq PRN Reason Stop Dose Admin Acetaminophen 650 mg 07/22/24 11:21 Acetaminophen 325 Mg Tablet PO 08/20/24 22:59 Q6H PRN Fever >100.4 or Pain 1-3 Hydrocodone Bitart/Acetaminophen 1 tab 07/21/24 23:00 07/24/24 07:25 Hydrocodone/Apap 5/325 Tablet PO 07/26/24 22:59 1 tab Q6H PRN Administration PAIN SCALE 4-6 (Moderate Atorvastatin Calcium 40 mg 07/22/24 21:00 07/23/24 20:27 Atorvastatin Calcium 20 Mg Tablet PO 08/21/24 20:59 40 mg HS JOEY Administration Docusate Sodium 100 mg 07/23/24 09:00 07/24/24 08:42 Docusate Sod 100 Mg Capsule PO 08/22/24 08:59 100 mg QDAY JOEY Administration Sodium Chloride 1,000 mls @ 20 mls/hr 07/23/24 15:29 07/23/24 16:04 Ns IV 08/22/24 15:28 20 mls/hr .Q24H JOEY Administration Magnesium Hydroxide 30 ml 07/21/24 23:00 Milk Of Magnesia Susp 30 Ml Udc PO 08/20/24 22:59 QDAY PRN CONSTIPATION Protocol Morphine Sulfate 2 mg 07/21/24 23:07 07/22/24 08:38 Morphine Sulf Inj 10 Mg/Ml Vial IVP 07/26/24 22:59 2 mg Q4H PRN Administration PAIN SCALE 7-10 (Severe Naloxegol 25 mg 07/23/24 09:00 07/24/24 08:42 Naloxegol Oxalate 25 Mg Tablet (Non-Formulary) PO 08/22/24 08:59 25 mg QDAY JOEY Administration Ondansetron HCl 4 mg 07/21/24 23:00 Ondansetron Inj 2 Mg/Ml Inj 2 Ml IV 08/20/24 22:59 Q6H PRN NAUSEA OR VOMITING Protocol Pantoprazole Sodium 40 mg 07/23/24 09:00 07/24/24 08:42 Pantoprazole 40 Mg Tablet PO 08/22/24 08:59 40 mg QDAY JOEY Administration Polyethylene Glycol 17 gm 07/23/24 09:45 07/24/24 08:42 Polyethylene Glycol 17 Gm Packet PO 08/22/24 09:44 17 gm QDAY JOEY Administration Sennosides 1 tab 07/21/24 23:00 Senna Tablet PO 08/20/24 22:59 BID PRN CONSTIPATION Protocol Plan 79-year-old female with past medical history of hyperlipidemia who presented to the ED on 07/21/2024 with a ground level mechanical fall, found to have acute comminuted intertrochanteric right hip fracture, admitted for orthopedic surgery. #Ground level mechanical fall #Acute comminuted intertrochanteric closed right hip fracture, s/p surgical repair #Acute anemia Patient had ground level mechanical fall at home, R hip and pelvis X-ray and CT showed acute comminuted intertrochanteric fracture of the right hip. Head and neck CT were negative. Patient denies any prodrome to fall, states she is normally independent. Patient without significant risk factors for surgery, METS >4. Hemoglobin dropped sharply over 48 hours, suspect related to hip fracture and surgery. Patient received repair surgery, well-tolerated. Hemoglobin continues to downtrend, 1 unit PRBC transfused. -Orthopedic surgery consulted, appreciate recommendations -Cardiology was consulted, cleared patient for surgery -Physical therapy -Acetaminophen as needed for fever or pain -[place] 5/325 q6h as needed for moderate to severe pain -Morphine 2 mg q4h as needed for severe pain -Zofran as needed for nausea -Monitor hemoglobin closely. -Consider Eliquis for postsurgical DVT prophylaxis, hold due to acute anemia #History of hyperlipidemia Patient history, takes atorvastatin at home. -Continue home atorvastatin 40 mg HS DVT prophylaxis: SCD GI prophylaxis: None Diet: Regular Lines: Peripheral IV Code status: Full Code Plan of care discussed with senior resident Dr. Serrano PGY-[address] Wharton. Ruben Fuller MD PGY-1 Attending Provider Attestation/Addendum I attest that I was physically present for the evaluation, physical examination, lab and imaging review of the patient with the residents. I discussed the case with the residents and agree with the findings and plans of care as documented above. Patient is postop day 2 after surgery for right hip fracture.? At bedside, she appears comfortable.? Has been able to participate with physical therapy. Hemoglobin noted to be dropped to 7.4.? We will transfuse 1 unit of PRBC. Possibly secondary to hematoma earlier, frequent blood draws and blood loss during surgery.? We will closely monitor the hemoglobin level. We will also obtain stool occult blood to rule out any GI bleeding. Will hold off on the DVT prophylaxis and start tomorrow if hemoglobin remains stable.? Lulu Wharton MD
--- NOTE | 2024-07-24 15:25 | PC.SS ---
Addendum entered by JAYDA Grigsby 07/24/24 15:27: PASRR completed. LV1. Original Note: Rounding note: post op day 2. Low hemoglobin levels.
[2024-07-24 19:07] LABS: Hematocrit 30.2 % (36.0-46.0); Hemoglobin 10.1 g/dL (12.0-16.0)
[2024-07-24] MEDS: ATORVASTATIN CALCIUM 20 MG TABLET 40 MG PO (21:22)
--- NOTE | 2024-07-24 21:32 | CONPN_ITS ---
Subjective Subjective Brief History: Patient was in her kitchen and started back up caught her shoe fell backwards and injured her right hip no complaints of pain in her right knee right ankle or foot no complaints of pain in her shoulders elbows wrist hands or fingers Narrative: Postop day 2. Moving right hip right knee right ankle. Exam Vital Signs Temp Pulse Resp BP Pulse Ox O2 Del Method O2 Flow Rate 99.1 F 88 18 131/50 H 98 Room Air 10 07/24/24 20:00 07/24/24 20:00 07/24/24 20:00 07/24/24 20:00 07/24/24 20:00 07/24/24 20:00 07/24/24 04:00 Pulse 88, blood pressure 131/50 Narrative Exam Wound is dry without any redness heat or Objective - Ortho Labs 07/24/24 18:37 07/24/24 04:38 Labs: Laboratory Results - last 24 hr 07/21/24 07/23/24 07/24/24 22:17 21:30 04:38 WBC 6.2 RBC 2.34 L Hgb 7.8 L 7.4 L Hct 23.3 L 22.1 L MCV 94 MCH 31.6 MCHC 33.5 RDW Std Deviation 46.9 H Plt Count 123 L Neut % (Auto) 67 Lymph % (Auto) 22 [place] % (Auto) 8 Eos % (Auto) 2 Baso % (Auto) 0 Neut # (Auto) 4.2 Lymph # (Auto) 1.4 [place] # (Auto) 0.5 Eos # (Auto) 0.1 Baso # (Auto) 0.0 Immature Gran # (Auto) 0.02 H Absolute Nucleated RBC 0.00 Immature Gran % 0 Nucleated RBC % 0 Sodium 142 Potassium 4.2 Chloride 111 H Carbon Dioxide 28.1 Anion Gap 3 L BUN 23 Creatinine 0.7 Estim Creat Clear Calc 67.9 eGFR > 60 BUN/Creatinine Ratio 33 H Glucose 110 H D Calculated Osmolality 287 Calcium 7.9 L Corrected Calcium 8.8 Phosphorus 2.7 Magnesium 2.1 Total Bilirubin 0.5 AST 21 ALT 18 Alkaline Phosphatase 46 Total Protein 4.7 L Albumin 2.9 L Globulin 1.8 L Albumin/Globulin Ratio 1.6 Blood Type A Positive Antibody Screen NEGATIVE Crossmatch See Detail Blood Bank Wristband ID Yes Blood Bank Comment PLATP Ready 07/24/24 18:37 WBC RBC Hgb 10.1 L D Hct 30.2 L MCV MCH MCHC RDW Std Deviation Plt Count Neut % (Auto) Lymph % (Auto) [place] % (Auto) Eos % (Auto) Baso % (Auto) Neut # (Auto) Lymph # (Auto) [place] # (Auto) Eos # (Auto) Baso # (Auto) Immature Gran # (Auto) Absolute Nucleated RBC Immature Gran % Nucleated RBC % Sodium Potassium Chloride Carbon Dioxide Anion Gap BUN Creatinine Estim Creat Clear Calc eGFR BUN/Creatinine Ratio Glucose Calculated Osmolality Calcium Corrected Calcium Phosphorus Magnesium Total Bilirubin AST ALT Alkaline Phosphatase Total Protein Albumin Globulin Albumin/Globulin Ratio Blood Type Antibody Screen Crossmatch Blood Bank Wristband ID Blood Bank Comment Hemoglobin 7 this morning, transfuse, hemoglobin 10 this evening Assessment & Plan Assessment Additional comments: Postop day 2. She is going to need to go to detention facility, rehab. I told her it is going to be a lot of work for several weeks Plan I would plan on discharge to SNF on Monday. If hemoglobin stable in a.m. I believe we get started on Eliquis 2.5 mg every 12. I would start tomorrow evening Documentation for date of: 07/24/24
[2024-07-25 04:00] VITALS: BP 134/69; PULSE 80; RESP 18; TEMP 36.5; O2SAT 95
[2024-07-25 06:04] LABS: Basophils % (Auto) 0 % (0-2.5); Eosinophils # (Auto) 0.3 Thou/mm3 (0.0-0.5); Eosinophils % (Auto) 5 % (0-10); Hematocrit 27.3 % (36.0-46.0); Hemoglobin 9.4 g/dL (12.0-16.0); Immature Granulocytes % (Auto) 0 % (0-0); Immature Granulocytes Auto 0.02 Thou/mm3 (0.00-0.00); Lymphocytes # (Auto) 1.5 Thou/mm3 (1.0-4.8); Lymphocytes % (Auto) 27 % (10-50); Mean Corpuscular HGB Conc 34.4 g/dl (31.0-37.0); Mean Corpuscular Hemoglobin 32.2 pg (25.0-35.0); Mean Corpuscular Volume 94 fL (80-100); Monocytes # (Auto) 0.5 Thou/mm3 (0.0-0.8); Monocytes % (Auto) 9 % (0-12); Neutrophils # (Auto) 3.2 Thou/mm3 (1.8-7.7); Neutrophils % (Auto) 59 % (37-80); Nucleated Red Blood Cell % 0 /100 WBC (0); Platelet Count 118 Thou/mm3 (140-440); RDW Standard Deviation 46.6 fL (36.4-46.3); Red Blood Count 2.92 Miln/mm3 (4.00-5.20); White Blood Count 5.5 Thou/mm3 (3.6-11.0)
[2024-07-25 06:30] LABS: Alanine Aminotransferase 20 U/L (10-49); Albumin, Serum 3.1 gm/dL (3.4-4.8); Albumin/Globulin Ratio 1.8 (1.2-2.2); Alkaline Phosphatase 53 U/L (46-116); Anion Gap 5 (7-16); Aspartate Amino Transferase 20 U/L (0-34); BUN/Creatinine Ratio 34 Ratio (12-20); Blood Urea Nitrogen 24 mg/dL (9-23); Calcium 8.1 mg/dL (8.3-10.6); Calcium (Corrected) 8.8 mg/dL (8.5-10.1); Carbon Dioxide 26.7 mMol/L (20.0-31.0); Chloride 108 mMol/L (98-107); Creatinine (Component) 0.7 mg/dL (0.6-1.3); Estimated Creatinine Clearance 67.9 mL/min (>60); Globulin 1.7 gm/dL (2.3-3.5); Glucose 107 mg/dL (74-106); Magnesium 1.9 mg/dL (1.6-2.6); Osmolality,Calculated 283 (275-295); Phosphorous 2.9 mg/dL (2.4-5.1); Potassium 4.1 mMol/L (3.4-5.1); Sodium 140 mMol/L (136-145); Total Protein 4.8 gm/dL (5.7-8.2); eGFR > 60 See Note
[2024-07-25 08:00] VITALS: BP 133/66; PULSE 69; RESP 18; TEMP 36.8; O2SAT 97
[2024-07-25 08:50] VITALS: PULSE 83; RESP 16; RESP 98; O2SAT 98
[2024-07-25] MEDS: NALOXEGOL OXALATE 25 MG TABLET (NON-FORMULARY) PO (09:45)
[2024-07-25] MEDS: PANTOPRAZOLE 40 MG TABLET PO (09:45)
[2024-07-25] MEDS: DOCUSATE SOD 100 MG CAPSULE PO (09:45)
[2024-07-25] MEDS: POLYETHYLENE GLYCOL 17 GM PACKET PO (09:45)
[2024-07-25] MEDS: SODIUM CHLORIDE 0.9% 1000 ML 1,000 ML 20 ML IV (09:54)
[2024-07-25] MEDS: ACETAMINOPHEN 325 MG TABLET 650 MG PO (09:54)
[2024-07-25 11:52] VITALS: BP 120/51; PULSE 68; RESP 18; TEMP 36.6; O2SAT 95
[2024-07-25] MEDS: LACTULOSE SYRUP 20 GM/30 ML UDC PO (12:01)
--- NOTE | 2024-07-25 12:38 | PC.SS ---
SS followed up with patient at bedside in regards to SNF of choice. Patient reports her is suppose to tour [facility] and is requesting more time before she makes a decision. patient will follow up with patient in regards to chosen SNF.
[2024-07-25 13:41] VITALS: BMI 11.0
[2024-07-25 13:43] LABS: Hemoglobin 10.3 g/dL (12.0-16.0)
--- NOTE | 2024-07-25 13:48 | PC.SS ---
SS follow up note; Patient's HMG is low, Post OP day #1.
[2024-07-25 16:00] VITALS: BP 120/56; PULSE 79; RESP 17; TEMP 36.2; O2SAT 95
--- NOTE | 2024-07-25 16:29 | ESPR_ITS ---
<Statement entered by Brian Serrano MD - 07/25/24 21:34> Patient was seen and examined at the bedside. Patient is postop day 3 after right hip fracture repair. Patient continued to had hemoglobin drop however this morning repeat H&H showed improvement in hemoglobin. She passed a bowel movement after bowel regime and we are waiting on FOBT to rule out GI bleed. Will likely start Eliquis 2.5 mg twice daily for DVT prophylaxis if hemoglobin is stable. Patient did complain of mild hip pain and PT saw the patient recommended SNF placement. Rest of the labs were unremarkable. All labs and orders were reviewed. I saw and examined the patient, and I agree with current management stated by Dr Jonny MD,PGY1. Plan of care was discussed with the attending physician and resident physician. Disclaimer: Despite multiple revisions, due to the dictation software being used, the document bellow may not be free of grammatical errors including phonetic/typographic errors. However, this does not deter from our commitment to providing health care in the patient's best interest in mind. Dr. Zach MD, PGY 2 Documentation for date of: 07/25/24 Subjective Subjective Interval history: No overnight events. Patient seen examined at bedside. Patient reports small improvements with PT. Mild tenderness of right hip, occasional dizziness starting physical therapy. Denies weakness, lethargy, chest pain, shortness of breath. Patient had bowel movement, will get a FOBT. If hemoglobin is stable tomorrow, will start Eliquis. Exam Vital Signs Temp Pulse Resp BP Pulse Ox O2 Del Method O2 Flow Rate 97.9 F 68 18 120/51 L 95 Room Air 10 07/25/24 11:52 07/25/24 11:52 07/25/24 11:52 07/25/24 11:52 07/25/24 11:52 07/25/24 11:52 07/24/24 04:00 Narrative Exam Physical Exam General: Awake and in no acute distress. Elderly female conversational and non- toxic appearing. HEENT: Normocephalic, atraumatic, mucous membranes moist. Heart: Regular rate and rhythm, no murmurs. Lungs: Clear to auscultation with no wheezing or crackles. Abdomen: Soft, nondistended, nontender, positive bowel sounds. ?No guarding or rebound tenderness. Neurologic: Alert and oriented x3, no gross neurological deficit, and patient able to move all 4 extremities. Extremities: Right hip is mildly tender, no notable abrasions, hematoma, ecchymoses. Surgical dressing dry and intact. Able to move bilateral toes. Peripheral pulses intact. Legs equal length. Skin: No rash or ecchymoses. Objective Labs 07/25/24 13:30 07/25/24 05:11 Labs: Laboratory Results - last 24 hr 07/21/24 07/24/24 07/25/24 22:17 18:37 05:11 WBC 5.5 RBC 2.92 L Hgb 10.1 L D 9.4 L Hct 30.2 L 27.3 L MCV 94 MCH 32.2 MCHC 34.4 RDW Std Deviation 46.6 H Plt Count 118 L Neut % (Auto) 59 Lymph % (Auto) 27 [place] % (Auto) 9 Eos % (Auto) 5 Baso % (Auto) 0 Neut # (Auto) 3.2 Lymph # (Auto) 1.5 [place] # (Auto) 0.5 Eos # (Auto) 0.3 Baso # (Auto) 0.0 Immature Gran # (Auto) 0.02 H Absolute Nucleated RBC 0.00 Immature Gran % 0 Nucleated RBC % 0 Sodium 140 Potassium 4.1 Chloride 108 H Carbon Dioxide 26.7 Anion Gap 5 L BUN 24 H Creatinine 0.7 Estim Creat Clear Calc 67.9 eGFR > 60 BUN/Creatinine Ratio 34 H Glucose 107 H Calculated Osmolality 283 Calcium 8.1 L Corrected Calcium 8.8 Phosphorus 2.9 Magnesium 1.9 Total Bilirubin 1.0 D AST 20 ALT 20 Alkaline Phosphatase 53 Total Protein 4.8 L Albumin 3.1 L Globulin 1.7 L Albumin/Globulin Ratio 1.8 Crossmatch See Detail 07/25/24 13:30 WBC RBC Hgb 10.3 L Hct 30.0 L MCV MCH MCHC RDW Std Deviation Plt Count Neut % (Auto) Lymph % (Auto) [place] % (Auto) Eos % (Auto) Baso % (Auto) Neut # (Auto) Lymph # (Auto) [place] # (Auto) Eos # (Auto) Baso # (Auto) Immature Gran # (Auto) Absolute Nucleated RBC Immature Gran % Nucleated RBC % Sodium Potassium Chloride Carbon Dioxide Anion Gap BUN Creatinine Estim Creat Clear Calc eGFR BUN/Creatinine Ratio Glucose Calculated Osmolality Calcium Corrected Calcium Phosphorus Magnesium Total Bilirubin AST ALT Alkaline Phosphatase Total Protein Albumin Globulin Albumin/Globulin Ratio Crossmatch Quality Measures Quality Measures VTE prophylaxis Advance care planning discussed with:: patient Assessment & Plan Assessment Current Active Medications: Generic Name Dose Route Start Last Admin Trade Name Freq PRN Reason Stop Dose Admin Acetaminophen 650 mg 07/22/24 11:21 07/25/24 09:54 Acetaminophen 325 Mg Tablet PO 08/20/24 22:59 650 mg Q6H PRN Administration Fever >100.4 or Pain 1-3 Hydrocodone Bitart/Acetaminophen 1 tab 07/21/24 23:00 07/24/24 21:22 Hydrocodone/Apap 5/325 Tablet PO 07/26/24 22:59 1 tab Q6H PRN Administration PAIN SCALE 4-6 (Moderate Atorvastatin Calcium 40 mg 07/22/24 21:00 07/24/24 21:22 Atorvastatin Calcium 20 Mg Tablet PO 08/21/24 20:59 40 mg HS JOEY Administration Docusate Sodium 100 mg 07/23/24 09:00 07/25/24 09:45 Docusate Sod 100 Mg Capsule PO 08/22/24 08:59 100 mg QDAY JOEY Administration Sodium Chloride 1,000 mls @ 20 mls/hr 07/23/24 15:29 07/25/24 09:54 Ns IV 08/22/24 15:28 20 mls/hr .Q24H JOEY Administration Lactulose 20 gm 07/25/24 11:20 07/25/24 14:38 Lactulose Syrup 20 Gm/30 Ml Udc PO 08/24/24 11:19 Not Given TID JOEY Protocol Magnesium Hydroxide 30 ml 07/21/24 23:00 Milk Of Magnesia Susp 30 Ml Udc PO 08/20/24 22:59 QDAY PRN CONSTIPATION Protocol Naloxegol 25 mg 07/23/24 09:00 07/25/24 09:45 Naloxegol Oxalate 25 Mg Tablet (Non-Formulary) PO 08/22/24 08:59 25 mg QDAY JOEY Administration Ondansetron HCl 4 mg 07/21/24 23:00 Ondansetron Inj 2 Mg/Ml Inj 2 Ml IV 08/20/24 22:59 Q6H PRN NAUSEA OR VOMITING Protocol Pantoprazole Sodium 40 mg 07/23/24 09:00 07/25/24 09:45 Pantoprazole 40 Mg Tablet PO 08/22/24 08:59 40 mg QDAY JOEY Administration Polyethylene Glycol 17 gm 07/23/24 09:45 07/25/24 09:45 Polyethylene Glycol 17 Gm Packet PO 08/22/24 09:44 17 gm QDAY JOEY Administration Sennosides 1 tab 07/21/24 23:00 Senna Tablet PO 08/20/24 22:59 BID PRN CONSTIPATION Protocol Plan 79-year-old female with past medical history of hyperlipidemia who presented to the ED on 07/21/2024 with a ground level mechanical fall, found to have acute comminuted intertrochanteric right hip fracture, admitted for orthopedic surgery. #Ground level mechanical fall #Acute comminuted intertrochanteric closed right hip fracture, s/p surgical repair #Acute anemia Patient had ground level mechanical fall at home, R hip and pelvis X-ray and CT showed acute comminuted intertrochanteric fracture of the right hip. Head and neck CT were negative. Patient denies any prodrome to fall, states she is normally independent. Patient without significant risk factors for surgery, METS >4. Hemoglobin dropped sharply over 48 hours, suspect related to hip fracture and surgery. Patient received repair surgery, well-tolerated. Hemoglobin continues to downtrend, 1 unit PRBC transfused. Posttransfusion hemoglobin 10.1. Afternoon hemoglobin 10.3. -Orthopedic surgery consulted, appreciate recommendations -Cardiology was consulted, cleared patient for surgery -Physical therapy -Acetaminophen as needed for fever or pain -Gem 5/325 q6h as needed for moderate to severe pain -Morphine 2 mg q4h as needed for severe pain -Zofran as needed for nausea -Monitor hemoglobin closely. -Consider Eliquis for postsurgical DVT prophylaxis, once hemoglobin stable #History of hyperlipidemia Patient history, takes atorvastatin at home. -Continue home atorvastatin 40 mg HS DVT prophylaxis: SCD GI prophylaxis: None Diet: Regular Lines: Peripheral IV Code status: Full Code Plan of care discussed with senior resident Dr. Serrano PGY-[address] Burch. Ruben Fuller MD PGY-1 Attending Provider Attestation/Addendum I have discussed and was present for the essential components of the history, physical examination, diagnosis, and treatment plan with the resident. I agree with the patient's care as documented by the resident and amended herein by me. Fransisco Burch DO. Patient seen and evaluated this AM. No significant plaints, pain well- controlled overnight. Hemoglobin 9.4 this morning which is an uptrend since previous day. FOBT negative for any occult blood. Will continue to monitor hemoglobin for another day, also continue to hold antiplatelet/anticoagulation at this time, may start tomorrow if hemoglobin stable. Patient did agree to SNF, likely DC on 07/26 if patient continues to improve. Will continue to monitor closely while she is here. Although this document has been carefully reviewed, there may still be some phonetic and other typographical errors. These errors are purely grammatical due to imperfections in the software program and should not be construed in any way to compromise the substance of the patient's medical care during this visit.
[2024-07-25 20:00] VITALS: BP 116/50; PULSE 90; RESP 18; TEMP 36.6; O2SAT 95
[2024-07-25] MEDS: ATORVASTATIN CALCIUM 20 MG TABLET 40 MG PO (21:24)
--- NOTE | 2024-07-25 21:30 | PC.NURSE ---
Noted order to remove alfaro POD#2, explained to pt that alfaro catheter needs to remove tonight but pt refused at this time, she said to leave it for now and to remove in AM, she said she just wanted to get some rest tonight. Will remove alfaro cath in AM.
--- NOTE | 2024-07-25 21:59 | PC.NURSE ---
MD Scott came and examined the pt, made aware of the alfaro cath still inplace and pt requesting to remove in AM, per okay to remove in AM.
--- NOTE | 2024-07-25 22:00 | PD.ORTHCONPN ---
Subjective Subjective Brief History: Patient was in her kitchen and started back up caught her shoe fell backwards and injured her right hip no complaints of pain in her right knee right ankle or foot no complaints of pain in her shoulders elbows wrist hands or fingers Narrative: Up with PT today. As pain when she moves hip in an abducted direction Exam Vital Signs Temp Pulse Resp BP Pulse Ox O2 Del Method O2 Flow Rate 97.8 F 90 18 116/50 L 95 Room Air 10 07/25/24 20:00 07/25/24 20:00 07/25/24 20:00 07/25/24 20:00 07/25/24 20:00 07/25/24 20:00 07/24/24 04:00 Blood pressure 116/50 Narrative Exam Alert and oriented. Flexing hip all the way to 90 degrees which is remarkable Objective - Ortho Labs 07/25/24 13:30 07/25/24 05:11 Labs: Laboratory Results - last 24 hr 07/21/24 07/25/24 07/25/24 22:17 05:11 13:30 WBC 5.5 RBC 2.92 L Hgb 9.4 L 10.3 L Hct 27.3 L 30.0 L MCV 94 MCH 32.2 MCHC 34.4 RDW Std Deviation 46.6 H Plt Count 118 L Neut % (Auto) 59 Lymph % (Auto) 27 [place] % (Auto) 9 Eos % (Auto) 5 Baso % (Auto) 0 Neut # (Auto) 3.2 Lymph # (Auto) 1.5 [place] # (Auto) 0.5 Eos # (Auto) 0.3 Baso # (Auto) 0.0 Immature Gran # (Auto) 0.02 H Absolute Nucleated RBC 0.00 Immature Gran % 0 Nucleated RBC % 0 Sodium 140 Potassium 4.1 Chloride 108 H Carbon Dioxide 26.7 Anion Gap 5 L BUN 24 H Creatinine 0.7 Estim Creat Clear Calc 67.9 eGFR > 60 BUN/Creatinine Ratio 34 H Glucose 107 H Calculated Osmolality 283 Calcium 8.1 L Corrected Calcium 8.8 Phosphorus 2.9 Magnesium 1.9 Total Bilirubin 1.0 D AST 20 ALT 20 Alkaline Phosphatase 53 Total Protein 4.8 L Albumin 3.1 L Globulin 1.7 L Albumin/Globulin Ratio 1.8 Crossmatch See Detail Hemoglobin 10.3 creatinine 0.7 Assessment & Plan Assessment Additional comments: Plan discharge tomorrow or Monday Plan Had BM today we will make sure she is on [employer] Documentation for date of: 07/25/24
[2024-07-26] VITALS: BP 127/63; PULSE 90; RESP 18; TEMP 36.7; O2SAT 96
[2024-07-26] MEDS: ACETAMINOPHEN 325 MG TABLET 650 MG PO ×4 (02:07→20:48)
[2024-07-26 04:00] VITALS: BP 122/57; PULSE 84; RESP 18; TEMP 36.2; O2SAT 95
[2024-07-26 05:45] LABS: Basophils % (Auto) 0 % (0-2.5); Eosinophils # (Auto) 0.3 Thou/mm3 (0.0-0.5); Eosinophils % (Auto) 4 % (0-10); Hematocrit 26.9 % (36.0-46.0); Hemoglobin 9.5 g/dL (12.0-16.0); Immature Granulocytes % (Auto) 0 % (0-0); Immature Granulocytes Auto 0.02 Thou/mm3 (0.00-0.00); Lymphocytes # (Auto) 1.4 Thou/mm3 (1.0-4.8); Lymphocytes % (Auto) 24 % (10-50); Mean Corpuscular HGB Conc 35.3 g/dl (31.0-37.0); Mean Corpuscular Hemoglobin 32.5 pg (25.0-35.0); Mean Corpuscular Volume 92 fL (80-100); Monocytes # (Auto) 0.6 Thou/mm3 (0.0-0.8); Monocytes % (Auto) 9 % (0-12); Neutrophils # (Auto) 3.7 Thou/mm3 (1.8-7.7); Neutrophils % (Auto) 62 % (37-80); Nucleated Red Blood Cell % 0 /100 WBC (0); Platelet Count 149 Thou/mm3 (140-440); RDW Standard Deviation 44.4 fL (36.4-46.3); Red Blood Count 2.92 Miln/mm3 (4.00-5.20); White Blood Count 5.9 Thou/mm3 (3.6-11.0)
[2024-07-26 06:06] LABS: Alanine Aminotransferase 18 U/L (10-49); Albumin, Serum 3.1 gm/dL (3.4-4.8); Albumin/Globulin Ratio 1.8 (1.2-2.2); Alkaline Phosphatase 50 U/L (46-116); Anion Gap 6 (7-16); Aspartate Amino Transferase 19 U/L (0-34); BUN/Creatinine Ratio 33 Ratio (12-20); Blood Urea Nitrogen 23 mg/dL (9-23); Calcium 8.4 mg/dL (8.3-10.6); Calcium (Corrected) 9.1 mg/dL (8.5-10.1); Carbon Dioxide 29.3 mMol/L (20.0-31.0); Chloride 106 mMol/L (98-107); Creatinine (Component) 0.7 mg/dL (0.6-1.3); Estimated Creatinine Clearance 67.9 mL/min (>60); Globulin 1.7 gm/dL (2.3-3.5); Glucose 124 mg/dL (74-106); Magnesium 1.9 mg/dL (1.6-2.6); Osmolality,Calculated 285 (275-295); Phosphorous 3.8 mg/dL (2.4-5.1); Potassium 4.1 mMol/L (3.4-5.1); Sodium 141 mMol/L (136-145); Total Protein 4.8 gm/dL (5.7-8.2); eGFR > 60 See Note
[2024-07-26] MEDS: LACTULOSE SYRUP 20 GM/30 ML UDC PO (06:06)
[2024-07-26 08:00] VITALS: BP 136/72; PULSE 82; RESP 17; TEMP 36.1; O2SAT 97
[2024-07-26] MEDS: PANTOPRAZOLE 40 MG TABLET PO (08:16)
[2024-07-26] MEDS: POLYETHYLENE GLYCOL 17 GM PACKET PO (08:16)
[2024-07-26] MEDS: DOCUSATE SOD 100 MG CAPSULE PO (08:16)
--- NOTE | 2024-07-26 10:37 | PC.SS ---
Addendum entered by JAYDA Grigsby 07/26/24 10:41: [facility] at [facility] is willing to accept the patient when ready for d/c. Original Note: SS update: patient inform preferred is SNF is [facility].
[2024-07-26 12:00] VITALS: BP 119/66; PULSE 76; RESP 18; TEMP 36.2; O2SAT 98
[2024-07-26 14:04] LABS: Hemoglobin 9.9 g/dL (12.0-16.0)
[2024-07-26] MEDS: SODIUM CHLORIDE 0.9% 1000 ML 1,000 ML 999 ML IV (14:19)
--- NOTE | 2024-07-26 14:31 | PC.NURSE ---
Patient is complaining of having the urge but unable to urinate. Patient's alfaro catheter was removed today around 6:02 AM. Last voided around 7:30 AM. Bladder scan done and resulted 700 ml reading. MD notified and new orders were given.
--- NOTE | 2024-07-26 14:34 | PC.SS ---
Rounding note: patient retaining urine. Anticipate discharge tomorrow to [facility]. Updated Isa at the facility.
[2024-07-26] MEDS: TAMSULOSIN HCL 0.4 MG CAPSULE PO (14:52)
--- NOTE | 2024-07-26 15:46 | ESPR_ITS ---
<Statement entered by Brian Serrano MD - 07/26/24 20:35> Patient was seen and examined at the bedside. Patient reported having mild hip pain. PT evaluated the patient recommended that patient will need compression stockings due to significant orthostatic vitals. Patient will drop in blood to 60s and systolic upon standing and was very dizzy on walking. Will give a bolus of fluids. Bladder scan showed 700 cc urine retention and nurse failed to do straight cath therefore Kurtz catheter was inserted. Patient will likely go to SNF tomorrow with a Kurtz catheter. All labs and orders were reviewed. Hemoglobin remained stable. Orthopedics recommended to not start Eliquis for DVT prophylaxis. I saw and examined the patient, and I agree with current management stated by Dr Jonny MD,PGY1. Plan of care was discussed with the attending physician and resident physician. Disclaimer: Despite multiple revisions, due to the dictation software being used, the document bellow may not be free of grammatical errors including phonetic/typographic errors. However, this does not deter from our commitment to providing health care in the patient's best interest in mind. Dr. Onur MD, PGY 2 Documentation for date of: 07/26/24 Subjective Subjective Interval history: No overnight events. Patient seen and examined at bedside. Patient doing well, complains of urinary retention. Notes dizziness during physical therapy. Endorses mild pain of right hip, adequately controlled with p.o. medication. Denies weakness, lethargy, shortness of breath, chest pain. Had multiple bowel movements since yesterday. Patient developed orthostatic hypotension during PT today, given 1 L bolus fluids and compression socks. Hemoglobin stabilized. Exam Vital Signs Temp Pulse Resp BP Pulse Ox O2 Del Method O2 Flow Rate 97.1 F 76 18 119/66 98 Room Air 07/26/24 12:07/26/24 12:07/26/24 12:07/26/24 12:07/26/24 12:07/26/24 12:07/24/24 04:00 Narrative Exam Physical Exam General: Awake and in no acute distress. Elderly female conversational and non- toxic appearing. HEENT: Normocephalic, atraumatic, mucous membranes moist. Heart: Regular rate and rhythm, no murmurs. Lungs: Clear to auscultation with no wheezing or crackles. Abdomen: Soft, nondistended, nontender, positive bowel sounds. ?No guarding or rebound tenderness. Neurologic: Alert and oriented x3, no gross neurological deficit, and patient able to move all 4 extremities. Extremities: Right hip is mildly tender, no notable abrasions, hematoma, ecchymoses. Surgical dressing dry and intact. Able to move bilateral toes. Peripheral pulses intact. Legs equal length. Skin: No rash or ecchymoses. Objective Labs 07/26/24 13:50 07/26/24 04:40 Labs: Laboratory Results - last 24 hr 07/26/24 07/26/24 04:40 13:50 WBC 5.9 RBC 2.92 L Hgb 9.5 L 9.9 L Hct 26.9 L 29.0 L MCV 92 MCH 32.5 MCHC 35.3 RDW Std Deviation 44.4 Plt Count 149 D Neut % (Auto) 62 Lymph % (Auto) 24 [place] % (Auto) 9 Eos % (Auto) 4 Baso % (Auto) 0 Neut # (Auto) 3.7 Lymph # (Auto) 1.4 [place] # (Auto) 0.6 Eos # (Auto) 0.3 Baso # (Auto) 0.0 Immature Gran # (Auto) 0.02 H Absolute Nucleated RBC 0.00 Immature Gran % 0 Nucleated RBC % 0 Sodium 141 Potassium 4.1 Chloride 106 Carbon Dioxide 29.3 Anion Gap 6 L BUN 23 Creatinine 0.7 Estim Creat Clear Calc 67.9 eGFR > 60 BUN/Creatinine Ratio 33 H Glucose 124 H Calculated Osmolality 285 Calcium 8.4 Corrected Calcium 9.1 Phosphorus 3.8 Magnesium 1.9 Total Bilirubin 1.0 AST 19 ALT 18 Alkaline Phosphatase 50 Total Protein 4.8 L Albumin 3.1 L Globulin 1.7 L Albumin/Globulin Ratio 1.8 Quality Measures Quality Measures VTE prophylaxis Advance care planning discussed with:: patient Assessment & Plan Assessment Current Active Medications: Generic Name Dose Route Start Last Admin Trade Name Freq PRN Reason Stop Dose Admin Acetaminophen 650 mg 07/22/24 11:21 07/26/24 14:44 Acetaminophen 325 Mg Tablet PO 08/20/24 22:59 650 mg Q6H PRN Administration Fever >100.4 or Pain 1-3 Hydrocodone Bitart/Acetaminophen 1 tab 07/21/24 23:00 07/24/24 21:22 Hydrocodone/Apap 5/325 Tablet PO 07/26/24 22:59 1 tab Q6H PRN Administration PAIN SCALE 4-6 (Moderate Atorvastatin Calcium 40 mg 07/22/24 21:00 07/25/24 21:24 Atorvastatin Calcium 20 Mg Tablet PO 08/21/24 20:59 40 mg HS JOEY Administration Docusate Sodium 100 mg 07/23/24 09:00 07/26/24 08:16 Docusate Sod 100 Mg Capsule PO 08/22/24 08:59 100 mg QDAY JOEY Administration Lactulose 20 gm 07/26/24 10:52 Lactulose Syrup 20 Gm/30 Ml Udc PO 08/24/24 11:19 TID PRN constipation Protocol Magnesium Hydroxide 30 ml 07/21/24 23:00 Milk Of Magnesia Susp 30 Ml Udc PO 08/20/24 22:59 QDAY PRN CONSTIPATION Protocol Naloxegol 25 mg 07/23/24 09:00 07/26/24 08:17 Naloxegol Oxalate 25 Mg Tablet (Non-Formulary) PO 08/22/24 08:59 Not Given QDAY JOEY Ondansetron HCl 4 mg 07/21/24 23:00 Ondansetron Inj 2 Mg/Ml Inj 2 Ml IV 08/20/24 22:59 Q6H PRN NAUSEA OR VOMITING Protocol Pantoprazole Sodium 40 mg 07/23/24 09:00 07/26/24 08:16 Pantoprazole 40 Mg Tablet PO 08/22/24 08:59 40 mg QDAY JOEY Administration Polyethylene Glycol 17 gm 07/23/24 09:45 07/26/24 08:16 Polyethylene Glycol 17 Gm Packet PO 08/22/24 09:44 17 gm QDAY JOEY Administration Sennosides 1 tab 07/21/24 23:00 Senna Tablet PO 08/20/24 22:59 BID PRN CONSTIPATION Protocol Tamsulosin HCl 0.4 mg 07/26/24 15:00 07/26/24 14:52 Tamsulosin Hcl 0.4 Mg Capsule PO 08/25/24 14:59 0.4 mg QDAY JOEY Administration Plan 79-year-old female with past medical history of hyperlipidemia who presented to the ED on 07/21/2024 with a ground level mechanical fall, found to have acute comminuted intertrochanteric right hip fracture, admitted for orthopedic surgery. #Ground level mechanical fall #Acute comminuted intertrochanteric closed right hip fracture, s/p surgical repair #Acute anemia Patient had ground level mechanical fall at home, R hip and pelvis X-ray and CT showed acute comminuted intertrochanteric fracture of the right hip. Head and neck CT were negative. Patient denies any prodrome to fall, states she is normally independent. Patient without significant risk factors for surgery, METS >4. Hemoglobin dropped sharply over 48 hours, suspect related to hip fracture and surgery. Patient received repair surgery, well-tolerated. Hemoglobin continues to downtrend, 1 unit PRBC transfused. Posttransfusion hemoglobin 10.1. Afternoon hemoglobin 10.3. -Orthopedic surgery consulted, appreciate recommendations -Cardiology was consulted, cleared patient for surgery -Physical therapy -Acetaminophen as needed for fever or pain -[place] 5/325 q6h as needed for moderate to severe pain -Zofran as needed for nausea -Monitor hemoglobin closely. -Consider Eliquis for postsurgical DVT prophylaxis, once hemoglobin stable #Orthostatic hypotension Patient developed orthostatic hypotension during physical therapy, with associated dizziness. Given 1 L bolus normal saline, compression socks. -Monitor closely #Urinary retention Patient has been unable to void since urinary catheter removed. Bladder scan showed 700 mL residual, patient received straight catheter x 1. Possibly related to pain medications, immobilization, recent surgery. -Bladder scan every 6 hours -Straight cath as needed #History of hyperlipidemia Patient history, takes atorvastatin at home. -Continue home atorvastatin 40 mg HS DVT prophylaxis: SCD GI prophylaxis: None Diet: Regular Lines: Peripheral IV Code status: Full Code Plan of care discussed with senior resident Dr. Serrano PGY-[address] Burch. Ruben Fuller MD PGY-1 Attending Provider Attestation/Addendum I have discussed and was present for the essential components of the history, physical examination, diagnosis, and treatment plan with the resident. I agree with the patient's care as documented by the resident and amended herein by me. Fransisco Burch DO. Patient seen and evaluated this AM. Hemoglobin open stable, patient however experiencing significant orthostatic hypotension when working with PT, will give fluid bolus today, will consider discharge tomorrow 07/27, will hold anticoagulation for now in setting of low hemoglobin status post transfusions, the patient can start at the recommendation of orthopedic surgery possibly in the outpatient setting. Will continue to monitor closely while she is here. Although this document has been carefully reviewed, there may still be some phonetic and other typographical errors. These errors are purely grammatical due to imperfections in the software program and should not be construed in any way to compromise the substance of the patient's medical care during this visit.
[2024-07-26 16:00] VITALS: BP 119/56; PULSE 70; RESP 17; TEMP 36.2; O2SAT 96
--- NOTE | 2024-07-26 16:09 | PC.NURSE ---
Unable to do straight in and out catheter after 2 attempts. Kurtz catheter was inserted. notified.
[2024-07-26 20:00] VITALS: BP 109/66; PULSE 83; RESP 18; TEMP 36.2; O2SAT 97
[2024-07-26] MEDS: ATORVASTATIN CALCIUM 20 MG TABLET 40 MG PO (20:20)
[2024-07-26] MEDS: HYDROcodone/APAP 5/325 TABLET 1 TAB PO (23:54)
[2024-07-27] VITALS: BP 108/52; PULSE 78; RESP 19; TEMP 36.2; O2SAT 91
[2024-07-27 04:00] VITALS: BP 113/61; PULSE 75; RESP 16; TEMP 36.1; O2SAT 97
[2024-07-27 06:30] LABS: Basophils % (Auto) 0 % (0-2.5); Eosinophils # (Auto) 0.3 Thou/mm3 (0.0-0.5); Eosinophils % (Auto) 7 % (0-10); Hematocrit 25.5 % (36.0-46.0); Immature Granulocytes % (Auto) 0 % (0-0); Immature Granulocytes Auto 0.02 Thou/mm3 (0.00-0.00); Lymphocytes # (Auto) 1.2 Thou/mm3 (1.0-4.8); Lymphocytes % (Auto) 26 % (10-50); Mean Corpuscular HGB Conc 34.1 g/dl (31.0-37.0); Mean Corpuscular Volume 94 fL (80-100); Monocytes # (Auto) 0.4 Thou/mm3 (0.0-0.8); Monocytes % (Auto) 9 % (0-12); Neutrophils # (Auto) 2.7 Thou/mm3 (1.8-7.7); Neutrophils % (Auto) 58 % (37-80); Nucleated Red Blood Cell % 0 /100 WBC (0); Platelet Count 149 Thou/mm3 (140-440); RDW Standard Deviation 45.9 fL (36.4-46.3); Red Blood Count 2.72 Miln/mm3 (4.00-5.20); White Blood Count 4.7 Thou/mm3 (3.6-11.0)
[2024-07-27 06:31] LABS: Hemoglobin 8.7 g/dL (12.0-16.0)
[2024-07-27 07:05] LABS: Alanine Aminotransferase 21 U/L (10-49); Albumin, Serum 2.9 gm/dL (3.4-4.8); Albumin/Globulin Ratio 1.8 (1.2-2.2); Alkaline Phosphatase 47 U/L (46-116); Anion Gap 6 (7-16); Aspartate Amino Transferase 17 U/L (0-34); BUN/Creatinine Ratio 43 Ratio (12-20); Bilirubin,Total 0.9 mg/dL (0.3-1.2); Blood Urea Nitrogen 26 mg/dL (9-23); Calcium 8.3 mg/dL (8.3-10.6); Calcium (Corrected) 9.2 mg/dL (8.5-10.1); Carbon Dioxide 28.3 mMol/L (20.0-31.0); Chloride 108 mMol/L (98-107); Creatinine (Component) 0.6 mg/dL (0.6-1.3); Estimated Creatinine Clearance 79.2 mL/min (>60); Globulin 1.6 gm/dL (2.3-3.5); Glucose 113 mg/dL (74-106); Magnesium 1.8 mg/dL (1.6-2.6); Osmolality,Calculated 288 (275-295); Phosphorous 3.8 mg/dL (2.4-5.1); Potassium 4.2 mMol/L (3.4-5.1); Sodium 142 mMol/L (136-145); Total Protein 4.5 gm/dL (5.7-8.2); eGFR > 60 See Note
[2024-07-27 07:50] VITALS: BP 120/60; PULSE 71; RESP 16; TEMP 36.2; O2SAT 97
--- NOTE | 2024-07-27 08:42 | PC.NURSE ---
Pt. alfaro has been DC at 08:30. Cath was intact upon removal. Will monitor pt. for their void after DC alfaro.
[2024-07-27] MEDS: PANTOPRAZOLE 40 MG TABLET PO (09:26)
[2024-07-27] MEDS: POLYETHYLENE GLYCOL 17 GM PACKET PO (09:26)
--- NOTE | 2024-07-27 09:29 | PD.RESDS ---
Planned Discharge Date 07/27/24 DS: Providers Provider Date of admission: 07/21/24 21:53 Primary care physician: Adán Reed MD Admitting Provider: Wilfredo Chand MD Attending Provider on Admission: Kevin Burch DO Consults: 07/21/24 21:26 Consult to Orthopedic Stat Comment: Consulting Provider: Aaron Coulter 07/21/24 21:35 Consult to Cardiology Stat Comment: Consulting Provider: Del Guzman Instructions: Right hip fracture. Did have angiogram and was told some blockage but not enough to require stent. Sees Dr. Le once a year and Dr. reed twice a year. She takes a baby aspirin daily and is on atorvastatin with a cholesterol total 147 07/21/24 23:42 Referral [facility] Routine Comment: Referral Physical Therapy Routine Comment: Physician Instructions: Referral Respiratory Therapy Routine Comment: 07/22/24 15:34 Referral Physical Therapy Routine Comment: Gait Training Physician Instructions: Instructions: wbtt with walker Attending Provider on DC: Kevin Burch DO Discharging Provider: Redd Fitzgerald DO DS: Diagnosis Problem List Completed Was Problem List Reviewed/Reconciled?: Yes Hospital Course Hospital Course Hospital course: #Ground level mechanical fall #Acute comminuted intertrochanteric closed right hip fracture, s/p surgical repair #Acute anemia #Orthostatic hypotension #Urinary retention #History of hyperlipidemia Patient is a 79-year-old female past medical history of hyperlipidemia who presents to the emergency department on 07/21/24 with a ground level mechanical fall. Patient normally ambulates independently without any assistance and completes all ADLs. Cervical CT spine and head CT were negative. Chest x-ray normal. Right hip and pelvis x-ray showed acute comminuted intertrochanteric fracture of the right hip. Right hip CT showed acute angulated comminuted intertrochanteric fracture of right hip. Patient was admitted for acute right hip fracture and orthopedist Dr. Coulter was consulted for repair. Patient's hemoglobin dropped after repair and was monitored, and transfused appropriately. Hemoglobin on discharge appears stable. On discharge patient denies any nausea/vomiting, chest pain/pressure, abdominal pain, changes in bowel movements or urinary symptoms, sensorineural changes. Patient will discharge to SNF where she can regain her strength. Patient advised to return to the emergency department if symptoms persist or worsen. Patient is agreeable Status at Discharge Cognitive/behavioral status at discharge: Patient appears stable at time of discharge Time Spent with Patient Time attestation: Total time spent providing and/or coordinating discharge services: Exam Vital Signs Temp Pulse Resp BP Pulse Ox O2 Del Method O2 Flow Rate 97.1 F 71 16 120/60 97 Room Air 10 07/27/24 07:50 07/27/24 07:50 07/27/24 07:50 07/27/24 07:50 07/27/24 07:50 07/27/24 07:50 07/24/24 04:00 Narrative Exam Physical Exam General: Awake and in no acute distress. Elderly female conversational and non-toxic appearing. HEENT: Normocephalic, atraumatic, mucous membranes moist. Heart: Regular rate and rhythm, no murmurs. Lungs: Clear to auscultation with no wheezing or crackles. Abdomen: Soft, nondistended, nontender, positive bowel sounds. ?No guarding or rebound tenderness. Neurologic: Alert and oriented x3, no gross neurological deficit, and patient able to move all 4 extremities. Extremities: Right hip is mildly tender, no notable abrasions, hematoma, ecchymoses. Surgical dressing dry and intact. Able to move bilateral toes. Peripheral pulses intact. Legs equal length. Skin: No rash or ecchymoses. Discharge Plan Plan Patient Disposition: Xfer [facility]illed [facility] Fac (SNF) Patient condition on transfer: Stable Care Plan Goals: Orthopedic: #1 it would be nice to walk her twice a day. I want to limit weightbearing to 50 pounds. I told her if she is going to fall trip lose her upright status she can put as much weight on her right lower extremity as needed to prevent fall. Dry dressing change every other day x 2 weeks postop. 2 view right hip in 2 weeks. Bring disc to my office. If the wound becomes red, drainage call me office [phone] cell phone [phone] cell phone [phone]. Take meals in chair. Prescriptions/Referrals Prescriptions/Med Rec: New pantoprazole 40 mg Tablet,Delayed Release (Dr/Ec) 40 mg PO QDAY 14 Days Qty: 14 0RF polyethylene glycol 3350 17 gram/dose powder 17 g PO QDAY PRN (Reason: constipation) 30 Days Qty: 119 0RF hydrocodone-acetaminophen 5-325 mg tablet 1 tab PO BID MDD 2 PRN (Reason: pain) Qty: 14 0RF (DME) compression socks, medium Misc See Rx Instructions .ROUTE Qty: 1 0RF Rx Instructions: As directed tamsulosin 0.4 mg Capsule 0.4 mg PO QDAY 30 Days Qty: 30 0RF Continued atorvastatin 40 mg tablet 40 mg PO DAILY Patient Comments: TAKE 1 TABLET BY MOUTH EVERYDAY AT BEDTIME Referrals: Adán Reed MD [Primary Care Provider] - Patient/Caregiver Discharge Instructions Discharge Activity: walk with walker only Other Discharge Activity Instructions:: Per Orthopedic surgeon: Orthopedic: #1 it would be nice to walk her twice a day. I want to limit weightbearing to 50 pounds. I told her if she is going to fall trip lose her upright status she can put as much weight on her right lower extremity as needed to prevent fall. Dry dressing change every other day x 2 weeks postop. 2 view right hip in 2 weeks. Bring disc to my office. If the wound becomes red, drainage call me office [phone] cell phone [phone] cell phone [phone]. Take meals in chair. Please follow-up with your primary care provider within 7 days of discharge Please follow-up with your orthopedic surgeon upon discharge as instructed Please return to the emergency department if your symptoms persist or worsen Education Materials: Leg or Arm Fractures, After a Hip Fracture: Common Questions, Hip Fracture Surgery: Types, How Bones Heal, ED Fracture, Lower Extremity Print Language: Lithuanian Stand Alone Forms: Alessandra Award Info., Patient Portal Info Letter Discharge Order Discharge Orders: Discharge (Routine); Ordered 07/27/24 Ordered By: Lucy Fitzgerald Quality Discharge Quality Measures VTE prophylaxis Attestestation Atttdation I have discussed and was present for the essential components of the discharge history, physical examination, diagnosis, and discharge treatment plan with the resident. I agree with the patient's discharge care as documented by the resident and amended herein by me. Fransisco Burch DO. The patient understood all discharge instructions, all questions were answered satisfactorily. The patient was instructed to return to the Emergency Department is symptoms worsened or persisted. Patient was stable, afebrile, tolerating p.o. intake at time of discharge to SNF. The patient did pass her voiding trial after removal of Kurtz. We will hold off on anticoagulation at this time per recommendations of orthopedic surgery, can be started at Dr. Scott's discretion on an outpatient setting due to concern of low hemoglobin in the last couple of days, although stable now prior to discharge. Although this document has been carefully reviewed, there may still be some phonetic and other typographical errors. These errors are purely grammatical due to imperfections in the software program and should not be construed in any way to compromise the substance of the patient's medical care during this visit.
--- NOTE | 2024-07-27 09:30 | PC.NURSE ---
Pt. Urinate 250cc ( 1st post void DC alfaro )
[2024-07-27 12:00] VITALS: BP 124/62; PULSE 72; RESP 16; TEMP 36.2; O2SAT 97
--- NOTE | 2024-07-27 13:07 | PC.NURSE ---
per SS nati amdal will supervisor opening and picking pt. at 3:40 pm
[2024-07-27 15:45] VITALS: BP 107/64; PULSE 82; RESP 16; TEMP 36.2; O2SAT 97
== END 2024-07-27 15:41 | disposition skilled nursing facility (03) | DRG 482 ==
LOC: SERX 21:28 → SERHOLD 22:12 → S3SX 23:13
PROVIDERS: Orthopaedic Surgery; Registered Nurse General Practice; Student in an Organized Health Care Education/Training Program; Admitting Provider Internal Medicine; Emergency Provider Emergency Medicine; PCP Internal Medicine; Visit Provider Student in an Organized Health Care Education/Training Program
PROC: 0QS604Z Reposition Right Upper Femur with Internal Fixation Device, Open Approach (ICD-10-PCS; CPT 27245; principal; 2024-07-22 13:00)
DX: S72.141A Displaced intertrochanteric fracture of right femur, initial encounter for closed fracture (principal); W18.30XA Fall on same level, unspecified, initial encounter; E78.5 Hyperlipidemia, unspecified; D64.9 Anemia, unspecified; Y92.009 Unspecified place in unspecified non-institutional (private) residence as the place of occurrence of the external cause; I25.10 Atherosclerotic heart disease of native coronary artery without angina pectoris; R33.9 Retention of urine, unspecified; I95.1 Orthostatic hypotension
CPT/HCPCS: 36415; 70450; 71045; 72125; 73502; 73700; 76000; 80048; 80053; 80061; 80307; 81001; 82947; 83036; 83615; 83735; 83880; 84100; 85014; 85018; 85025; 85610; 85730; 86850; 86900; 86901; 86923; 86965; 93005; 93306; 96374; 96375; 97162; 99285; A4217; A4649; C1713; C1769; C1776; J0131; J0689; J0690; J1100; J2270; J2405; J2704; J3010; J3371; J3475; J3490; J7030; J7042; P9016; P9035; A9270

== ENCOUNTER → 2024-11-05 | Outpatient (CLI) | payer MEDICARE, BC, SELFPAY ==
--- NOTE | 2024-11-05 12:30 | XR_ITS ---
Exam: MRI knee without contrast, right Date and time of exam: November 05, 2024 1309 hours INDICATIONS: Right knee pain beginning 2004 Technique: Multiple axial, coronal, and sagittal sections on the knee have been obtained. T2-Weighted sagittal, fat-suppressed images, TR 3,500, TE 62, T2 weighted coronal fat-saturated images, TR 3,500, TE 62 Proton density sagittal sections, TR 1800, TE 31. T-1 weighted coronal images, TR 524, TE 13.0 Findings: Medial meniscus anterior horn intact. Medial meniscus, body horizontal linear tear communicating inferior articular surface. Posterior horn medial meniscus horizontal linear tear communicating inferior articular surface near the inner margin. Lateral meniscus anterior horn is intact Lateral meniscus, body is intact Posterior horn lateral meniscus is intact Anterior cruciate ligament severely attenuated Posterior cruciate ligament appears intact. Knee effusion is small. Quadriceps and patellar tendons appear intact. There is no evidence of tendinosis. Inflammatory change or fracture of Hoffa's fat pad is not seen. Medial patellar facet demonstrates severe thinning. Lateral patellar facet cartilage demonstrates severe thinning. Trochlear cartilage demonstrates severe thinning. Marrow signal adequate. Medial collateral ligament appears intact. No meniscocapsular separation is seen. Illiotibial band and fibular collateral ligament are intact. Biceps femoris tendons appear intact. Medial femoral condylar articular cartilage demonstrates severe thinning. Lateral femoral condylar articular cartilage demonstratessevere thinning. Tibial plateau cartilage demonstrates severe thinning. Impression: Horizontal linear tear as body and posterior horn medial meniscus Severe attenuation anterior cruciate ligament Severe tricompartment joint narrowing
== END | disposition home or self-care (01) ==
LOC: SMRI 12:07
PROVIDERS: PCP Internal Medicine; Referring Provider Orthopaedic Surgery; Visit Provider Orthopaedic Surgery
DX: S83.231A Complex tear of medial meniscus, current injury, right knee, initial encounter (principal); X58.XXXA Exposure to other specified factors, initial encounter; M25.861 Other specified joint disorders, right knee
CPT/HCPCS: 73721

== ENCOUNTER → 2025-03-26 | Outpatient (CLI) | payer MEDICARE, BC, SELFPAY ==
[2025-03-26 12:11] LABS: Collection Type, Urine Clean Catch; Squamous Epithelial Cell,Urine 0 /hpf (0-5)
[2025-03-26 12:30] LABS: Bilirubin,Urine Negative (Negative); Blood,Urine Negative (Negative); Clarity,Urine Clear (Clear/Hazy); Color,Urine Lt-Yellow (Lt Yel-Yel); Glucose, Urine Negative (Negative); Ketones,Urine Negative (Negative); Leukocyte Esterase,Urine Negative (Negative); Nitrite,Urine Negative (Negative); PH,Urine 6.0 (5.0-7.0); Protein,Urine Negative (Neg - Trace); RBC,Urine 2 /hpf (0-3); Specific Gravity,Urine 1.024 (1.001-1.035); Urobilinogen,Urine Negative mg/dL (0.0-1.0); WBC,Urine 1 /hpf (0-5)
[2025-03-26 13:00] LABS: Alanine Aminotransferase 20 U/L (10-49); Albumin, Serum 4.2 gm/dL (3.4-4.8); Albumin/Globulin Ratio 2.3 (1.2-2.2); Alkaline Phosphatase 83 U/L (46-116); Anion Gap 9 (7-16); Aspartate Amino Transferase 22 U/L (0-34); BUN/Creatinine Ratio 30 Ratio (12-20); Bilirubin,Total 0.7 mg/dL (0.3-1.2); Blood Urea Nitrogen 24 mg/dL (9-23); Calcium 9.6 mg/dL (8.3-10.6); Calcium (Corrected) 9.6 mg/dL (8.5-10.1); Carbon Dioxide 27.9 mMol/L (20.0-31.0); Chloride 105 mMol/L (98-107); Creatinine (Component) 0.8 mg/dL (0.6-1.3); Globulin 1.8 gm/dL (2.3-3.5); Glucose 88 mg/dL (74-106); Magnesium 1.8 mg/dL (1.6-2.6); Osmolality,Calculated 286 (275-295); Phosphorous 2.7 mg/dL (2.4-5.1); Potassium 4.1 mMol/L (3.4-5.1); Sodium 142 mMol/L (136-145); Total Protein 6.0 gm/dL (5.7-8.2); eGFR > 60 See Note
== END | disposition home or self-care (01) ==
LOC: COPL 11:07
PROVIDERS: PCP Internal Medicine; Referring Provider Orthopaedic Surgery; Visit Provider Orthopaedic Surgery
DX: N39.0 Urinary tract infection, site not specified (principal)
CPT/HCPCS: 36415; 80053; 81001; 83735; 84100